=== PATIENT | female | born 1970 | race Caucasian/White ===

== ENCOUNTER 2016-04-30 18:55 | Emergency (ER) | payer OTHER ==
[2016-04-30 19:17] VITALS: BP 124/81; PULSE 98; TEMP 99.1; BMI 45.1
--- NOTE | 2016-04-30 20:40 | PDOC ---
History of Present Illness - General Chief Complaint: Back Pain Stated Complaint: BACK PAIN Time Seen by Provider: 04/30/16 19:48 History Source: Patient Exam Limitations: No Limitations - History of Present Illness Initial Comments: 04/30/16 20:39 CHIEF COMPLAINT: Back pain HISTORY OF PRESENT ILLNESS: This is a 46-year-old female with a history of chronic back pain and unspecified autoimmune disorder currently being worked up at [facility]. 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 She is a one pack per day smoker. She presents complaining of sudden onset of left upper back pain. The pain started while she was straining to have a bowel movement, however she states it is unlike her typical back pain. She reports that she is unable to take a deep breath because she feels a "band around her chest" and that she has pain in the left upper back when she tries to breathe deeply. She does not have chest pain at rest. She has not had any cough/hemoptysis. She has some mild dyspnea on exertion. Vital signs on arrival are notable for pulse of 98. REVIEW OF SYSTEMS: GENERAL/CONSTITUTIONAL: No fever or chills. No weakness. No weight change. HEAD, EYES, EARS, NOSE AND THROAT: No change in vision. No ear pain or discharge. No sore throat. CARDIOVASCULAR: Chest tightness with deep breathing. Mild LAWTON. RESPIRATORY: No cough, wheezing, or shortness of breath at rest. GASTROINTESTINAL: No nausea, vomiting, diarrhea or constipation. GENITOURINARY: No dysuria, frequency, or change in urination. MUSCULOSKELETAL: Left upper back pain, worse with deep breathing. SKIN: No rash or easy bruising. NEUROLOGIC: No headache, vertigo, loss of consciousness, or loss of sensation. PSYCHIATRIC: History of depression. ENDOCRINE: No increased thirst. No abnormal weight change. HEMATOLOGIC/LYMPHATIC: History of hypercoaguability on no AC or anti-platelet agents. ALLERGIC/IMMUNOLOGIC: Sulfa allergy. PHYSICAL EXAM: GENERAL: The patient is awake, alert, and fully oriented, in no acute distress. HEAD: Normal with no signs of trauma. ENT: Pupils equal, round and reactive to light, extraocular movements intact, sclera anicteric, conjunctiva clear. Neck supple. LUNGS: Clear to auscultation bilaterally. Splinting/unable to breathe deeply because of pain. CV: RRR, S1/S2, no MRG. Cap refill < 2 sec. ABDOMEN: Soft, non-distended, non-tender. EXTREMITIES: Left calf pain/positive Homans'. NEUROLOGICAL: Normal speech, normal gait. CN II-XII grossly intact. PSYCH: Normal mood, normal affect. SKIN: Warm, dry, normal turgor, no rashes or lesions noted. Past History - Past Medical History Allergies/Adverse Reactions: Allergies Allergy/AdvReac Type Severity Reaction Status Date / Time Sulfa (Sulfonamide Allergy Severe Difficulty Verified 04/30/16 19:12 Antibiotics) Breathing sulfite Allergy Verified 04/30/16 19:13 sulfates Allergy hives, Uncoded 04/30/16 19:12 swelling Home Medications: Ambulatory Orders Escitalopram Oxalate [Lexapro -] 10 mg PO DAILY 10/04/13 Methadone [Dolophine -] 10 mg PO BID 10/04/13 Lansoprazole [Prevacid] 30 mg PO DAILY 01/28/15 Cephalexin Monohydrate [Keflex -] 1,000 mg PO BID #14 capsule 01/29/15 Anemia: Yes Cardiac Disorders: Yes COPD: Yes (Emphysema) Psychiatric Problems: Yes (depression) - Surgical History Orthopedic Surgery: Yes (laminectomy x 2, microdiscectomy) - Immunization History Immunization Up to Date: Yes - Psycho/Social/Smoking Cessation Hx Anxiety: No Suicidal Ideation: No Smoking Status: Yes Smoking History: Current every day smoker Have you smoked in the past 12 months: Yes Number of Cigarettes Smoked Daily: 20 Information on smoking cessation initiated: Yes 'Breaking Loose' booklet given: 04/30/16 Hx Alcohol Use: No Drug/Substance Use Hx: No Substance Use Type: None Hx Substance Use Treatment: No *Physical Exam - Vital Signs Last Vital Signs Temp Pulse Resp BP Pulse Ox 99.1 F 98 H 18 124/81 99 04/30/16 19:13 04/30/16 19:13 04/30/16 19:13 04/30/16 19:13 04/30/16 19:13 ED Treatment Course - LABORATORY CBC & Chemistry Diagram: 04/30/16 20:30 04/30/16 20:30 Medical Decision Making - Medical Decision Making 04/30/16 20:46 A/P: 46 year old female with chest tightness/left upper back pain, possible history of hypercoaguability with 12 miscarriages, current smoker. 1. EKG 2. Labs including d-dimer 3. LE u/s to r/o DVT 4. Declines analgesia 04/30/16 22:20 D-dimer negative No DVT on u/s *DC/Admit/Observation/Transfer Diagnosis at time of Disposition: Upper back pain on left side - Discharge Dispostion Disposition: HOME Condition at time of disposition: Stable Admit: No - Referrals Referrals: Yecenia Salazar MD [Primary Care Provider] - Call tomorrow - Patient Instructions Printed Discharge Instructions: Thoracic Back Pain Additional Instructions: You were seen today for upper back pain and pleuritic chest pain. Your lab test to screen for blood clots in the lungs is normal. Your ultrasound to test for blood clots in the leg is also normal. Continue your pain medication regimen. Follow up with Dr. Salazar this week. Return here for any new or worsening symptoms.
[2016-04-30 20:56] LABS: BASOPHIL 1.6 % (0-2.0); EOSINOPHIL 1.4 % (0-4.5); MCH 27.7 pg (25.7-33.7); MCHC 32.5 g/dl (32.0-36.0); MEAN CELL VOLUME 85.2 fl (80-96); MEAN PLT VOLUME 7.9 fl (7.5-11.1); NEUTROPHILS 50.8 % (42.8-82.8); PLATELET COUNT 271 K/MM3 (134-434); RDW 13.6 % (11.6-15.6)
[2016-04-30 21:20] LABS: CALCIUM 8.5 mg/dL (8.5-10.1); CREATININE 0.9 mg/dL (0.55-1.02)
[2016-04-30 21:58] LABS: INR 1.08 (0.82-1.09)
[2016-04-30 22:01] LABS: D-DIMER < 200 ng/ml (<200-235)
--- NOTE | 2016-05-01 16:34 | EKG ---
Test Reason : Blood Pressure : / mmHG Vent. Rate : 080 BPM Atrial Rate : 080 BPM P-R Int : 132 ms QRS Dur : 074 ms QT Int : 390 ms P-R-T Axes : 026 030 037 degrees QTc Int : 449 ms NORMAL SINUS RHYTHM POSSIBLE ANTERIOR INFARCT , AGE UNDETERMINED ABNORMAL ECG WHEN COMPARED WITH ECG OF 08-SEP-2014 17:49, NO SIGNIFICANT CHANGE WAS FOUND Confirmed by DANE MÉNDEZ MD ([id number]) on 05/01/2016 4:34:23 PM Referred By: ANGIE Confirmed By:DANE MÉNDEZ MD
== END 2016-04-30 22:24 | disposition home or self-care (01) ==
LOC: JERFT 18:55
DX: M54.6 Pain in thoracic spine (principal); M79.662 Pain in left lower leg; D68.69 Other thrombophilia; J43.8 Other emphysema; F17.210 Nicotine dependence, cigarettes, uncomplicated; F32.9 Major depressive disorder, single episode, unspecified
CPT/HCPCS: 36415; 80048; 84703; 85025; 85379; 85610; 93005; 93010; 93971-TC; 99281-25

== ENCOUNTER 2016-08-05 07:14 | Day surgery (SDC) | payer OTHER ==
[2016-08-04 12:49] VITALS: BMI 30.7
[2016-08-05] MEDS ORDERED: MIDAZOLAM HCL 2 MG/2 ML SINGLE DOSE VIAL ONE ×2 (09:21)
[2016-08-05] MEDS ORDERED: TRIAMCINOLONE ACET 40MG/1ML VIAL ONE (09:25)
[2016-08-05] MEDS ORDERED: KETAMINE HCL 200 MG/20 ML VIAL ONE (09:35)
[2016-08-05 10:05] VITALS: TEMP 98.2
[2016-08-05] MEDS ORDERED: oxyCODONE HCL 5 MG TABLET PO ONE (10:12)
[2016-08-05 10:18] VITALS: BP 104/65; PULSE 80
--- NOTE | 2016-08-05 13:29 | OP ---
DATE OF OPERATION: 08/05/2016 PREOPERATIVE DIAGNOSIS: Low back pain, lumbar fusion, right sacroiliac joint dysfunction. POSTOPERATIVE DIAGNOSIS: Low back pain, lumbar fusion, right sacroiliac joint dysfunction. PROCEDURE: Right sacroiliac joint steroid injection. ANESTHESIA: Local and MAC. ANESTHESIOLOGIST: OLIVER Campos PROCEDURE: I discussed with her in detail about the risks, benefits, and alternative treatments, not only limited to infection, fever, numbness, tingling, weakness, injury to blood vessels and muscles. The patient understood, agreed, and signed the written consent. The patient was placed in the prone position with the head, abdomen, and legs supported with pillows. The patient was given intravenous sedation. The lumbosacral area was prepped and draped with Betadine x3 and alcohol x3. Under fluoroscopy, the right sacroiliac joint was identified. At this level, 3 mL of 1% lidocaine was infiltrated into the subcutaneous tissue. A 3-1/2-inch 22-gauge spinal needle was used to approach the sacroiliac joint. Under intermittent fluoroscopy, 1 mL of Omnipaque 180 was injected to see the flow of dye into the sacroiliac joint. After negative aspiration, solution containing 40 mg of Kenalog mixed with 2 mL of 0.25% Marcaine preservative-free for total of 3 mL was injected at this level. The needle was withdrawn. Lidocaine 1% of 1 mL was infiltrated. The patient tolerated the procedure well. There were no immediate complications. Betadine was wiped off. A sterile bandage was placed. The patient was then transferred to the recovery room. The patient was told to apply ice. If any problems to call me or report to the emergency room. Discharge instructions were given. She was told to follow up with me. ADEN CRUZ M.D. [id number]
== END 2016-08-05 10:15 | disposition home or self-care (01) ==
LOC: FASU 07:14
PROVIDERS: ATTEND Physical Medicine & Rehabilitation
PROC: 3E0R3CZ (ICD-10-PCS; 2016-08-05)
PROC: 3E0R33Z Introduction of Anti-inflammatory into Spinal Canal, Percutaneous Approach (ICD-10-PCS; principal; 2016-08-05 09:31)
DX: M46.1 Sacroiliitis, not elsewhere classified (principal); M54.5 Low back pain
CPT/HCPCS: 72100-TC; 84703

== ENCOUNTER 2016-11-18 05:15 | Day surgery (SDC) | payer OTHER ==
[2016-11-17 16:40] VITALS: BMI 32.3
[~2016-11-18 05:15] MED LIST: BUPIVACAINE HCL/PF 0.5% (5MG/ML) 10 ML VIAL IJ ONE
--- NOTE | 2016-11-18 07:20 | HP ---
Admitting History and Physical - Primary Care Physician PCP: Yecenia Salazar - Admission Chief Complaint: Numbness & tingling from shoulders to hands (bilateral) L>R History of Present Illness: 46 yo female with significant pmhx or chronic back pain. Multiple surgeries which include C3-C6 bilateral laminectomy, L4-L5 unilateral laminectomy and mircodiscetomy, L4-L5 fusion and spinal cord stimulator x 2. Patient here today for elective removal of cervical and thoracolumbar cord stimulators and repair of pseudomenincocele. She states she normally ambulates unassisted but as pain progresses throughout the day she needs to use her wheelchair. She is managed by Dr. Jose Perera (Pain Management) who has her on methadone 5mg BID. Denies any recent illness. Denies n/v/f/c, CP, SOB. History Source: Patient Limitations to Obtaining History: No Limitations - Past Medical History LINKING MACHINE OPERATOR: No: Alzheimer's, CVA, Dementia, Migraine, Multiple Sclerosis, Peripheral Neuropathy, Parkinson's, Seizure, Syncope, TIA, Vertigo, Other Cardiovascular: No: Murmur Pulmonary: Yes: Bronchitis, Other (Allergies) Gastrointestinal: Yes: Constipation, GERD, Hemorrhoids Renal/: Yes: UTI ...LMP: 10/14/16 ...: No Psych: Yes: Depression Musculoskeletal: Yes: Chronic low back pain, Other (Spinal stenosis, spondylolithesis) ENT: Yes: Allergic Rhinitis - Past Surgical History Past Surgical History: Yes: Arthrosocopy (Left knee x3), , Laminectomy (L4-L5 bilateral laminectomy and mircodiscectomy) Additional Past Surgical History: L4-L5 fusion Cervical and thoracolumbar spinal cord stimulators 2007 - Advance Directives Advance Directives: Yes: Living Will - Smoking History Smoking history: Current every day smoker Have you smoked in the past 12 months: Yes Aproximately how many cigarettes per day: 20 - Alcohol/Substance Use Hx Alcohol Use: No History of Substance Use: reports: None - Social History Usual Living Arrangement: Yes: Alone ADL: Independent History of Recent Travel: No Home Medications - Allergies Allergies/Adverse Reactions: Allergies Allergy/AdvReac Type Severity Reaction Status Date / Time adhesive tape Allergy Intermediate Rash Verified 11/18/16 06:38 sulfite Allergy Hives/ANAPH Verified 11/18/16 06:38 YLAXIS hydromorphone HCl AdvReac Severe Verified 11/18/16 06:38 [From Dilaudid] morphine AdvReac Severe Verified 11/18/16 06:38 Sulfa (Sulfonamide AdvReac Severe Difficulty Verified 11/18/16 06:38 Antibiotics) Breathing sulfates Allergy hives, Uncoded 11/18/16 06:38 swelling - Home Medications Home Medications: Ambulatory Orders Escitalopram Oxalate [Lexapro -] 20 mg PO DAILY 10/04/13 Methadone [Dolophine -] 5 mg PO BID 10/04/13 Adalimumab [Humira] 40 mg SQ ASDIR 08/04/16 Aspirin [Ecotrin] 81 mg PO DAILY 08/04/16 Montelukast Na [Singulair -] 10 mg PO DAILY 08/04/16 Ranitidine [Zantac -] 150 mg PO DAILY 08/04/16 Review of Systems - Review of Systems Constitutional: reports: No Symptoms Eyes: reports: No Symptoms HENT: reports: No Symptoms Neck: reports: No Symptoms Cardiovascular: reports: No Symptoms Respiratory: reports: No Symptoms Gastrointestinal: reports: No Symptoms Genitourinary: reports: No Symptoms Breasts: reports: No Symptoms Reported Musculoskeletal: reports: Back Pain (Chronic), Other (bilateral upper extremitiy numbness/tingling L>R) Integumentary: reports: No Symptoms Neurological: reports: No Symptoms Hematology/Lymphatic: reports: No Symptoms Psychiatric: reports: No Symptoms Physical Examination Vital Signs: Vital Signs Temperature 97.8 F 11/18/16 06:31 Pulse Rate 90 11/18/16 06:31 Respiratory Rate 18 11/18/16 06:31 Blood Pressure 108/77 11/18/16 06:31 O2 Sat by Pulse Oximetry (%) 98 11/18/16 06:32 Constitutional: Yes: Well Nourished, No Distress, Calm Eyes: Yes: WNL, Conjunctiva Clear, EOM Intact HENT: Yes: WNL, Atraumatic, Normocephalic Neck: Yes: WNL, Supple, Trachea Midline Cardiovascular: Yes: WNL, Regular Rate and Rhythm Respiratory: Yes: WNL, Regular, CTA Bilaterally Gastrointestinal: Yes: WNL, Normal Bowel Sounds, Soft, Abdomen, Obese ...Rectal Exam: Yes: Deferred Renal/: Yes: WNL Breast(s): Yes: WNL Musculoskeletal: Yes: Back Pain Extremities: Yes: WNL Edema: No Peripheral Pulses WNL: Yes Peripheral Pulses: Left Radial: 2+, Right Radial: 2+ Integumentary: Yes: WNL Neurological: Yes: WNL, Alert, Oriented ...Motor Strength: WNL Psychiatric: Yes: WNL, Alert, Oriented Problem List - Problems (1) Chronic pain Assessment/Plan: Pre-op for removal of spinal cord stim x 2 and repair of pseudomeningocele. NPO / IVF GI / DVT ppx Code(s): G89.29 - OTHER CHRONIC PAIN
[2016-11-18] MEDS ORDERED: LIDOCAINE 1%/EPI 1:100000 (50 ML MULTI DOSE VIAL) ONE ×2 (07:25→08:52)
[2016-11-18] MEDS ORDERED: BUPIVACAINE HCL/PF 0.5% (5MG/ML) 10 ML VIAL ONE (07:25)
[2016-11-18] MEDS ORDERED: MIDAZOLAM HCL 2 MG/2 ML SINGLE DOSE VIAL ONE ×2 (07:47→10:34)
[2016-11-18] MEDS ORDERED: GLYCOPYRROLATE 0.2 MG/1 ML VIAL ONE ×2 (07:48→10:22)
[2016-11-18] MEDS ORDERED: PROPOFOL 20 ML ONE ×2 (08:08→08:09)
[2016-11-18] MEDS ORDERED: ROCURONIUM BROMIDE 50 MG/5 ML VIAL ONE (08:09)
[2016-11-18] MEDS ORDERED: LIDOCAINE HCL/PF 2% SDV 5ML VIAL ONE (08:09)
[2016-11-18] MEDS ORDERED: DEXAMETHASONE SOD PHOSPHATE 4 MG/1 ML VIAL ONE ×2 (08:15→08:50)
[2016-11-18] MEDS ORDERED: ceFAZolin SODIUM 1 GM VIAL ONE (08:22)
[2016-11-18] MEDS ORDERED: SODIUM CHLORIDE 0.9% P/F 10 ML VIAL IJ ONE (08:22)
[2016-11-18] MEDS ORDERED: ceFAZolin SODIUM 1 GM VIAL IVPB ONE (08:30)
[2016-11-18] MEDS ORDERED: ACETAMINOPHEN INJECTION 100 ML IVPB ONE (08:48)
[2016-11-18] MEDS ORDERED: DESFLURANE GAS 240 ML BOTTLE IH ONE (08:57)
[2016-11-18] MEDS ORDERED: LIDOCAINE 1%/EPI 1:100000 (20 ML MULTI DOSE VIAL) INF ONE (09:02)
[2016-11-18] MEDS ORDERED: NEOSTIGMINE METHYLSULFATE 0.5 MG/ML - 10 ML MDV ONE (10:23)
[2016-11-18] MEDS ORDERED: BUPIVACAINE HCL/PF 0.5% (5MG/ML) 10 ML VIAL IJ ONE (10:45)
[2016-11-18] MEDS ORDERED: BUPIVACAINE HCL/PF 0.25% (2.5MG/ML) 10 ML VIAL ONE (10:46)
[2016-11-18] MEDS ORDERED: BUPIVACAINE HCL/PF 0.25% (2.5MG/ML) 10 ML VIAL IJ ONE (10:50)
[2016-11-18] MEDS ORDERED: KETOROLAC TROMETHAMINE 30 MG/1 ML VIAL ONE (11:15)
[2016-11-18] MEDS ORDERED: PROMETHAZINE HCL 25 MG/1 ML VIAL IVPUSH PRN (11:21)
[2016-11-18] MEDS ORDERED: ONDANSETRON 4 MG/2 ML VIAL IVPUSH PRN (11:21)
[2016-11-18] MEDS ORDERED: LACTATED RINGERS SOLUTION 1,000 ML IV SCH ×2 (11:30→12:15)
--- NOTE | 2016-11-18 12:11 | OP ---
Operative Note - Note: Operative Date: 11/18/16 Pre-Operative Diagnosis: Cervical and lumbar spondylosis with pseudomenigocele Operation: Removal of cervical and thoracolumbar spinal cord stimulators (fully intact), repair pseudomeningocele Post-Operative Diagnosis: Same as Pre-op Surgeon: Reed Hood Glass Cutting Machine Operator: Otto Amezcua Anesthesia: General Estimated Blood Loss (mls): 50 Drains, Volume Out (mls): 100 (Ferguson) Fluid Volume Replaced (mls): 700 Operative Report Dictated: Yes
[2016-11-18] MEDS ORDERED: ONDANSETRON 4 MG/2 ML VIAL IVPB PRN (12:12)
[2016-11-18] MEDS ORDERED: oxyCODONE HCL 5 MG TABLET PO PRN (12:12)
--- NOTE | 2016-11-18 12:12 | SURG ---
Surgery Core Stacker Note Core Stacker: Otto Amezcua PA-C Date of Service: 11/18/16 Diagnosis: Cervical and lumbar spondylosis with pseudomenigocele Procedure: Removal of cervical and thoracolumbar spinal cord stimulators and repair pseudomeningocele I was present for the entirety of the operative procedure. For further detail, please refer to operative report. Visit type - Case Type Case Type: Scheduled Admission - New patient This patient is new to me today: Yes Date on this admission: 11/18/16
[2016-11-18] MEDS ORDERED: PATIENT'S OWN MEDICATION (NON-FORMULARY) (Adalimumab [Humira] 40 MG) SQ SCH (12:15)
[2016-11-18] MEDS: ACETAMINOPHEN 1000 MG/100 ML VIAL (NON FORMULARY) IVPB SCH ×2 (14:38→17:59)
[2016-11-18 19:04] VITALS: BP 106/64; PULSE 72; TEMP 97.6
[2016-11-18] MEDS ORDERED: diphenhydrAMINE HCL 25 MG CAPSULE (FP) PO ONE (21:19)
[2016-11-18] MEDS ORDERED: METHADONE HCL 10 MG TABLET PO SCH (22:00)
--- NOTE | 2016-11-19 08:51 | PATH ---
Surgical Pathology Report Patient Name: CAROLYN LORA Med. Rec. #: [id number] /Age/Gender: 1970 (Age: 46) / F Account: [id number] Location: AMBULATORY SURG Taken: 11/18/2016 Received: 11/18/2016 Reported: 11/19/2016 Physicians: Reed Schuster M.D. Specimen(s) Received SPINAL CORD STIMULATORS Clinical History Chronic pain, pseudomeningocele Final Diagnosis WEBBING INSPECTOR, REMOVAL: TWO SPINAL CORD STIMULATORS (gross only). Electronically Signed Stevie Ramirez M.D. Gross Description Received dry labeled "spinal cord stimulators "are 2 metallic and plastic medical devices consistent with spinal cord stimulators. Each of these measures 5.5 x 5.3 x 0.8 cm. One is designated Medtronic restore ultra, and the other is designated Medtronic restore sensor. Also present are multiple portions of metallic wire partially covered in plastic. This is for gross identification only. YOSI/11/18/2016 [facility]/11/18/2016
[2016-11-19] MEDS ORDERED: ASPIRIN COATED 81 MG TABLET.EC PO SCH (10:00)
[2016-11-19] MEDS ORDERED: ESCITALOPRAM OXALATE 20 MG TABLET (FP) PO SCH (10:00)
[2016-11-19] MEDS ORDERED: RANITIDINE HCL 150 MG TABLET (FP) PO SCH (10:00)
[2016-11-19] MEDS ORDERED: MONTELUKAST NA 10 MG TABLET PO SCH (10:00)
== END 2016-11-18 22:30 | disposition home or self-care (01) ==
LOC: JASU-SURG 05:15 → JASUSAT 05:15 → J6S 14:20 → JASUSAT 22:30
PROVIDERS: ATTEND Neurological Surgery
PROC: 0JPT0MZ Removal of Stimulator Generator from Trunk Subcutaneous Tissue and Fascia, Open Approach (ICD-10-PCS; 2016-11-18)
PROC: 0JX Subcutaneous Tissue and Fascia, Transfer (ICD-10-PCS; 2016-11-18)
PROC: 00PU0MZ Removal of Neurostimulator Lead from Spinal Canal, Open Approach (ICD-10-PCS; principal; 2016-11-18 08:00)
DX: M47.892 Other spondylosis, cervical region (principal); M47.896 Other spondylosis, lumbar region; G89.29 Other chronic pain; Y83.8 Other surgical procedures as the cause of abnormal reaction of the patient, or of later complication, without mention of misadventure at the time of the procedure
CPT/HCPCS: 76000-TC; 88300-TC; 94760

== ENCOUNTER 2017-01-16 08:00 | Inpatient (IN) | payer OTHER ==
[2017-01-13 15:07] VITALS: BMI 33.0
[2017-01-20] MEDS ORDERED: PROPOFOL 20 ML ONE ×3 (07:41)
[2017-01-20] MEDS ORDERED: SUCCINYLCHOLINE CHLORIDE 200 MG/10 ML VIAL ONE (07:41)
[2017-01-20] MEDS ORDERED: MIDAZOLAM HCL 2 MG/2 ML SINGLE DOSE VIAL ONE ×3 (07:41)
[2017-01-20] MEDS ORDERED: ROCURONIUM BROMIDE 50 MG/5 ML VIAL ONE ×5 (07:41→12:13)
[2017-01-20] MEDS ORDERED: GENTAMICIN SO4 80 MG/2 ML VIAL ONE (08:10)
[2017-01-20] MEDS ORDERED: BACITRACIN 15 GM TUBE TOPICAL OINTMENT ONE (08:11)
[2017-01-20] MEDS ORDERED: BUPIVACAINE HCL/PF 0.5% (5MG/ML) 10 ML VIAL ONE (08:11)
[2017-01-20] MEDS ORDERED: LIDOCAINE 1%/EPI 1:100000 (50 ML MULTI DOSE VIAL) ONE (08:11)
--- NOTE | 2017-01-20 08:21 | HP ---
History & Physical Update - History History: No Change - Physical Physical: No Change - Assessment Assessment: No Change - Plan Plan: No Change
[2017-01-20] MEDS ORDERED: CEFAZOLIN 2 GM/D5W 50 ML IVPB ONE (08:30)
[2017-01-20] MEDS ORDERED: ceFAZolin SODIUM 1 GM VIAL IVPB ONE (09:00)
[2017-01-20] MEDS ORDERED: ONDANSETRON 4 MG/2 ML VIAL IVPUSH PRN (10:30)
[2017-01-20] MEDS ORDERED: LACTATED RINGERS SOLUTION 1,000 ML IV SCH (10:30)
[2017-01-20] MEDS ORDERED: LIDOCAINE HCL 0.5% EPINEPHRINE 1:200,000 50 ML VIAL IJ ONE ×2 (10:46→12:45)
[2017-01-20] MEDS ORDERED: ceFAZolin SODIUM 1 GM VIAL ONE ×3 (10:51→16:51)
[2017-01-20] MEDS ORDERED: DEXAMETHASONE SOD PHOSPHATE 4 MG/1 ML VIAL ONE ×2 (10:51→13:20)
[2017-01-20] MEDS ORDERED: SODIUM CHLORIDE 0.9% P/F 10 ML VIAL IJ ONE (10:51)
[2017-01-20] MEDS ORDERED: LIDOCAINE HCL/PF 2% SDV 5ML VIAL ONE (10:51)
[2017-01-20] MEDS ORDERED: DESFLURANE GAS 240 ML BOTTLE IH ONE (10:59)
--- NOTE | 2017-01-20 12:41 | EKG ---
Test Reason : Blood Pressure : / mmHG Vent. Rate : 109 BPM Atrial Rate : 109 BPM P-R Int : 136 ms QRS Dur : 074 ms QT Int : 354 ms P-R-T Axes : 069 037 -15 degrees QTc Int : 476 ms SINUS TACHYCARDIA rSR' IN V1-V2 NONSPECIFIC T WAVE ABNORMALITY ABNORMAL ECG WHEN COMPARED WITH ECG OF 17-NOV-2016 16:15, NONSPECIFIC T WAVE ABNORMALITY NOW EVIDENT IN LATERAL LEADS REPEAT EKG IF CLINICALLY INDICATED Confirmed by TREVER ESCALONA MD ([id number]) on 01/20/2017 12:41:43 PM Referred By: LUISA ALTAMIRANO Confirmed By:TREVER ESCALONA MD
[2017-01-20] MEDS ORDERED: LIDOCAINE 1%/EPI 1:100000 (20 ML MULTI DOSE VIAL) INF ONE (12:46)
[2017-01-20] MEDS ORDERED: BACITRACIN 15 GM TUBE TOPICAL OINTMENT TP ONE (12:47)
[2017-01-20] MEDS ORDERED: THROMBIN (BOVINE) 5,000 UNIT VIAL TP ONE (12:47)
[2017-01-20] MEDS ORDERED: BUPIVACAINE HCL/PF 0.5% (5MG/ML) 10 ML VIAL IJ ONE (12:55)
[2017-01-20] MEDS ORDERED: GLYCOPYRROLATE 0.2 MG/1 ML VIAL ONE (13:44)
[2017-01-20] MEDS ORDERED: NEOSTIGMINE METHYLSULFATE 0.5 MG/ML - 10 ML MDV ONE (13:44)
[2017-01-20] MEDS ORDERED: ACETAMINOPHEN INJECTION 100 ML IVPB ONE (14:18)
[2017-01-20] MEDS: ACETAMINOPHEN 1000 MG/100 ML VIAL (NON FORMULARY) IVPB ONE ×2 (14:23→18:21)
[2017-01-20] MEDS ORDERED: fentaNYL 1000 MCG/50 ML *PCA* DISP.SYRIN PCA SCH (14:30)
[2017-01-20] MEDS ORDERED: diazePAM CARPU-JECT 10 MG/2 ML DISP.SYRIN IVPUSH PRN (15:23)
--- NOTE | 2017-01-20 15:26 | PN ---
Progress Note, Physician Chief Complaint: POST-OP TODAY IN ICU S/P CERVICAL LAMINECTOMY WITH CAGE INSERTION ASLEEP - Current Medication List Current Medications: Active Medications Buspirone HCl (Buspar -) 10 mg PO BID [facility] Chlorhexidine Gluconate (Hibiclens For Decolonization -) 1 applic TP HS [facility] Diazepam (Valium Injection -) 5 mg IVPUSH Q6H PRN PRN Reason: PAIN Escitalopram Oxalate (Lexapro -) 20 mg PO DAILY [facility] Fentanyl (Fentanyl Cotton Sampler -) 1,000 mcg AUTOMATIC EQUIPMENT TECHNICIAN AUTOMATIC EQUIPMENT TECHNICIAN FREDA PRN Reason: Protocol Stop: 01/23/17 14:29 Fentanyl (Sublimaze Injection -) 100 mcg IVPUSH [id number] PRN PRN Reason: PAIN Stop: 01/23/17 14:31 Heparin Sodium (Porcine) (Heparin -) 5,000 unit SQ TID [facility] Lactated Ringer's (Lactated Ringers Solution) 1,000 mls @ 125 mls/hr IV ASDIR [facility] Cefazolin Sodium 1 gm/ (Dextrose) 50 mls @ 100 mls/hr IVPB Q8H-IV [facility] Stop: 01/21/17 02:29 Sodium Chloride (Normal Saline -) 1,000 mls @ 60 mls/hr IV ASDIR [facility] Montelukast Sodium (Singulair -) 10 mg PO DAILY [facility] Mupirocin (Bactroban Ointment (For Decolonization) -) 1 applic NS BID [facility] Stop: 01/25/17 21:59 Ondansetron HCl (Zofran Injection) 4 mg IVPUSH Q6H PRN PRN Reason: NAUSEA AND/OR VOMITING Stop: 01/20/17 16:31 Ranitidine HCl (Zantac -) 150 mg PO DAILY [facility] - Objective Vital Signs: Vital Signs Temperature 98.1 F 01/20/17 07:28 Pulse Rate 104 H 01/20/17 07:28 Respiratory Rate 20 01/20/17 07:28 Blood Pressure 116/76 01/20/17 07:28 O2 Sat by Pulse Oximetry (%) 95 01/20/17 07:27 Constitutional: No: Mild Distress Eyes: Yes: WNL HENT: Yes: WNL Neck: Yes: Other Cardiovascular: Yes: WNL Respiratory: Yes: WNL Gastrointestinal: Yes: WNL Genitourinary: Yes: Ferguson Present Musculoskeletal: Yes: Muscle Weakness Extremities: Yes: WNL Edema: No Peripheral Pulses WNL: Yes Integumentary: Yes: WNL Wound/Incision: Yes: Dressing Dry and Intact ...Motor Strength: LUE, LLE, RUE, RLE Psychiatric: Yes: Other Problem List - Problems (1) Chronic pain Code(s): G89.29 - OTHER CHRONIC PAIN (2) Nicotine dependence Code(s): F17.200 - NICOTINE DEPENDENCE, UNSPECIFIED, UNCOMPLICATED (3) Spinal stenosis Code(s): M48.00 - SPINAL STENOSIS, SITE UNSPECIFIED (4) Spondylolisthesis Code(s): M43.10 - SPONDYLOLISTHESIS, SITE UNSPECIFIED Assessment/Plan S/P CERVICAL SPINE LAMINECTOMY PAIN CONTROL WOUND CARE DVT PROPHYLAXIS PT EVAL [facility]
[2017-01-20] MEDS ORDERED: SODIUM CHLORIDE 1,000 ML IV SCH (15:30)
--- NOTE | 2017-01-20 15:31 | OP ---
Operative Note - Note: Operative Date: 01/20/17 Pre-Operative Diagnosis: cervical myelopathy Operation: cervical laminectomy/corpectomies with Cage insertion/anterior plate , C3-C7 posterior fusion Surgeon: Reed Hood Retail Coverage Merchandiser Lead: Reina Smart Anesthesiologist/PRIMER BOXER: Trixie Sotomayor Anesthesia: General Estimated Blood Loss (mls): 430 Drains, Volume Out (mls): 200 (hunter) Fluid Volume Replaced (mls): 4,000 Operative Report Dictated: Yes
--- NOTE | 2017-01-20 15:37 | SURG ---
Surgery Biomedical Manager Note Biomedical Manager: Reina Smart PA-C Date of Service: 01/20/17 Diagnosis: cervical myelopathy Procedure: cervical laminectomy/corpectomies with Cage insertion/anterior plate, C3-C7 posterior fusion I was present for the entirety of the operative procedure. For further detail, please refer to operative report. Visit type - Case Type Case Type: Scheduled Admission - Emergency Emergency Visit: No - New patient This patient is new to me today: Yes Date on this admission: 01/20/17 - Critical Care Critical Care patient: No
[2017-01-20] MEDS: diazePAM CARPU-JECT 10 MG/2 ML DISP.SYRIN IVPUSH ONE (16:02)
[2017-01-20 16:32] LABS: MCH 28.7 pg (25.7-33.7); MCHC 33.5 g/dl (32.0-36.0); MEAN CELL VOLUME 85.6 fl (80-96); MEAN PLT VOLUME 7.9 fl (7.5-11.1); PLATELET COUNT 244 K/MM3 (134-434); RDW 13.8 % (11.6-15.6); WHITE BLOOD COUNT 14.6 K/mm3 (4.0-10.0)
[2017-01-20 17:43] LABS: ANION GAP 6 (8-16); CALCIUM 8.1 mg/dL (8.5-10.1); CO2 26 mmol/L (21-32); CREATININE 0.8 mg/dL (0.55-1.02); GLUCOSE,RANDOM 134 mg/dL (74-106)
[2017-01-20] MEDS ORDERED: CEFAZOLIN 1 GM in DEXTROSE 5%-WATER - 50 ML IVPB SCH (20:00)
[2017-01-20 20:01] LABS: PLATELET ESTIMATE ADEQUATE (NORMAL); REACTIVE LYMPHOCYTES 1 % (0-80); TOTAL CELLS COUNTED 100
--- NOTE | 2017-01-20 20:57 | CONSULT ---
Consult Consult Specialty:: Pulmonary Critical care Reason for Consultation:: Post op monitoring - History of Present Illness Chief Complaint: s/p cervical laminectomy History of Present Illness: 46 you with h/o chronic back pain, depression, anxiety who is s/p cervical laminectomy/corpectomies with cage insertion, C3-C7 posterior fusion. Admitted to ICU for post op monitoring. Current Medications Acetaminophen (Ofirmev Injection -) 1,000 mg IVPB Q8H [facility] Stop: 01/21/17 14:16 Buspirone HCl (Buspar -) 10 mg PO BID [facility] Chlorhexidine Gluconate (Hibiclens For Decolonization -) 1 applic TP HS [facility] Diazepam (Valium Injection -) 5 mg IVPUSH Q6H PRN PRN Reason: PAIN Escitalopram Oxalate (Lexapro -) 20 mg PO DAILY [facility] Fentanyl (Fentanyl Creative Intern -) 1,000 mcg COLLECTION SYSTEMS CONSULTANT COLLECTION SYSTEMS CONSULTANT FREDA PRN Reason: Protocol Stop: 01/23/17 14:29 Last Admin: 01/20/17 15:30 Dose: 1,000 mcg Fentanyl (Sublimaze Injection -) 100 mcg IVPUSH [id number] PRN PRN Reason: PAIN Stop: 01/23/17 14:31 Last Admin: 01/20/17 14:26 Dose: 100 mcg Heparin Sodium (Porcine) (Heparin -) 5,000 unit SQ TID [facility] Sodium Chloride (Normal Saline -) 1,000 mls @ 60 mls/hr IV ASDIR [facility] Last Admin: 01/20/17 18:53 Dose: 60 mls/hr Cefazolin Sodium 1 gm/ (Dextrose) 50 mls @ 100 mls/hr IVPB Q8H [facility] Stop: 01/21/17 05:44 Montelukast Sodium (Singulair -) 10 mg PO DAILY [facility] Mupirocin (Bactroban Ointment (For Decolonization) -) 1 applic NS BID [facility] Stop: 01/25/17 21:59 Ondansetron HCl (Zofran Injection) 4 mg IVPUSH Q6H PRN PRN Reason: NAUSEA AND/OR VOMITING Ranitidine HCl (Zantac -) 150 mg PO DAILY [facility] - Past Medical History Pulmonary: Yes: Bronchitis, Other (Allergies) Gastrointestinal: Yes: Constipation, GERD, Hemorrhoids Renal/: Yes: UTI ...LMP: 10/14/16 Psych: Yes: Depression Musculoskeletal: Yes: Chronic low back pain, Other (Spinal stenosis, spondylolithesis) ENT: Yes: Allergic Rhinitis - Past Surgical History Past Surgical History: Yes: Arthrosocopy (Left knee x3), , Laminectomy (L4-L5 bilateral laminectomy and mircodiscectomy) - Alcohol/Substance Use Hx Alcohol Use: No History of Substance Use: reports: None - Smoking History Smoking history: Never smoked Have you smoked in the past 12 months: Yes Aproximately how many cigarettes per day: 20 - Social History ADL: Independent History of Recent Travel: No Home Medications - Allergies Allergies/Adverse Reactions: Allergies Allergy/AdvReac Type Severity Reaction Status Date / Time adhesive tape Allergy Intermediate Rash Verified 01/20/17 07:31 sulfite Allergy Hives/ANAPH Verified 01/20/17 07:31 YLAXIS hydromorphone HCl AdvReac Severe Verified 01/20/17 07:31 [From Dilaudid] morphine AdvReac Severe Verified 01/20/17 07:31 Sulfa (Sulfonamide AdvReac Severe Difficulty Verified 01/20/17 07:31 Antibiotics) Breathing sulfates Allergy hives, Uncoded 01/20/17 07:31 swelling - Home Medications Home Medications: Ambulatory Orders Escitalopram Oxalate [Lexapro -] 20 mg PO DAILY 10/04/13 Methadone [Dolophine -] 5 mg PO BID 10/04/13 Adalimumab [Humira] 40 mg SQ ASDIR 08/04/16 Aspirin [Ecotrin] 81 mg PO DAILY 08/04/16 Montelukast Na [Singulair -] 10 mg PO DAILY 08/04/16 Ranitidine [Zantac -] 150 mg PO DAILY 08/04/16 Buspirone HCl [Buspar -] 10 mg PO BID 01/13/17 Physical Exam Vital Signs: Vital Signs Temperature 98.2 F 01/20/17 20:00 Pulse Rate 110 H 01/20/17 20:00 Respiratory Rate 16 01/20/17 20:18 Blood Pressure 133/80 01/20/17 20:36 O2 Sat by Pulse Oximetry (%) 97 01/20/17 20:18 Eyes: Yes: WNL Neck: Yes: Other (Collar in place, 2 CHRISTINA drains draining serosangiunous fluid) Cardiovascular: Yes: Tachycardia, S1, S2 Respiratory: Yes: CTA Bilaterally Gastrointestinal: Yes: Normal Bowel Sounds, Soft, Abdomen, Obese. No: Tenderness Extremities: Yes: WNL Edema: No Neurological: Yes: Alert, Oriented ...Motor Strength: WNL Labs: CBC, BMP 01/20/17 16:00 01/20/17 16:00 Imaging - Results EKG: Image Reviewed Problem List - Problems (1) Chronic pain Code(s): G89.29 - OTHER CHRONIC PAIN (2) Spinal stenosis Code(s): M48.00 - SPINAL STENOSIS, SITE UNSPECIFIED (3) Spondylolisthesis Code(s): M43.10 - SPONDYLOLISTHESIS, SITE UNSPECIFIED Assessment/Plan ASSESSMENT: 46 you with h/o chronic back pain, depression, anxiety who is s/p cervical laminectomy/corpectomies with cage insertion, C3-C7 posterior fusion. Admitted to ICU for post op monitoring. PLAN: -surgery following -keep C-collar in place -monitor CHRISTINA output -pain management with fentanyl COLLECTION SYSTEMS CONSULTANT -valium prn for anxiety -cont buspar -cont lexapro -cont cefazolin -venodynes in place for DVT ppx NIESHA Guerrero critical care time: 35 min
[2017-01-20] MEDS: MUPIROCIN 2% TOPICAL OINTMENT FOR DECOLONIZATION NS SCH (21:32)
[2017-01-20] MEDS: HEPARIN NA (PORCINE) 5,000 UNITS/ML 1ML VIAL SQ SCH (21:32)
[2017-01-20] MEDS: ACETAMINOPHEN 1000 MG/100 ML VIAL (NON FORMULARY) IVPB SCH (21:32)
[2017-01-20] MEDS: CHLORHEXIDINE GLUCONATE 4% CLEANSER FOR DECOLONIZATION TP SCH (21:39)
[2017-01-20] MEDS: CEFAZOLIN 1 GM in DEXTROSE 5%-WATER - 50 ML IVPB SCH (22:01)
[2017-01-20] MEDS: busPIRone HCL 10 MG TABLET (FP) PO SCH (23:00)
[2017-01-21] MEDS: CEFAZOLIN 1 GM in DEXTROSE 5%-WATER - 50 ML IVPB SCH (05:10)
[2017-01-21] MEDS: HEPARIN NA (PORCINE) 5,000 UNITS/ML 1ML VIAL SQ SCH ×3 (05:18→21:21)
[2017-01-21] MEDS: ACETAMINOPHEN 1000 MG/100 ML VIAL (NON FORMULARY) IVPB SCH (05:19)
[2017-01-21 06:27] LABS: BASOPHIL 0.1 % (0-2.0); MEAN CELL VOLUME 85.3 fl (80-96); MEAN PLT VOLUME 8.1 fl (7.5-11.1); NEUTROPHILS 86.3 % (42.8-82.8); PLATELET COUNT 256 K/MM3 (134-434); RDW 13.5 % (11.6-15.6); WHITE BLOOD COUNT 14.1 K/mm3 (4.0-10.0)
[2017-01-21 06:54] LABS: ANION GAP 8 (8-16); CALCIUM 8.2 mg/dL (8.5-10.1); CO2 28 mmol/L (21-32); GLUCOSE,RANDOM 108 mg/dL (74-106)
[2017-01-21 06:56] LABS: CREATININE 0.6 mg/dL (0.55-1.02)
--- NOTE | 2017-01-21 08:19 | PN ---
Physical Exam: SUBJECTIVE: Patient seen and examined in ICU. Neck pain poorly controlled, converted PUBLIC HEALTH ASSISTANT to PO per pt request. Denies fever, chills, chest pain and SOB. Marty d/c this AM. OBJECTIVE: Vital Signs Period Temp Pulse Resp BP Sys/Vela Pulse Ox Last 24 Hr 98.2 F-98.9 F 87-120 9-22 117-173/73-126 95-100 Intake & Output 01/18/17 01/19/17 01/20/17 01/21/17 23:59 23:59 23:59 23:59 Intake Total 4620 820 Output Total 2727 1250 Balance 1893 -430 general: uncomfortable, uncooperative neck: c-collar, 2xJP drain w/ serosanginous discharge heart: rrr, no murmur, gallop or rub lungs: CTAB, no wheezes, rales, or rhonchi abdomen: soft, ntnd extr: wwp, no LE edema Laboratory Results - last 24 hr 01/20/17 01/20/17 01/21/17 16:00 16:00 05:10 WBC 14.6 H D 14.1 H RBC 4.62 4.36 Hgb 13.2 D 12.6 Hct 39.6 D 37.2 MCV 85.6 85.3 MCH 28.7 29.0 MCHC 33.5 34.0 RDW 13.8 13.5 Plt Count 244 256 MPV 7.9 8.1 Total Counted 100 Neutrophils % No Result Required. 86.3 H D Neutrophils % (Manual) 92 H* Band Neuts % (Manual) 2 Lymphocytes % No Result Required. 7.8 L D Lymphocytes % (Manual) 4 L Monocytes % 5.8 Monocytes % (Manual) 1 L Eosinophils % 0.0 D Basophils % 0.1 Other Cell Type Platelet Estimate Adequate Sodium 138 Potassium 4.2 Chloride 106 Carbon Dioxide 26 Anion Gap 6 L BUN 11 D Creatinine 0.8 Random Glucose 134 H D Calcium 8.1 L Active Medications Buspirone HCl (Buspar -) 10 mg PO BID [facility] Last Admin: 01/20/17 23:00 Dose: 10 mg Chlorhexidine Gluconate (Hibiclens For Decolonization -) 1 applic TP HS [facility] Last Admin: 01/20/17 21:39 Dose: 1 applic Docusate Sodium (Colace -) 100 mg PO BID PRN PRN Reason: CONSTIPATION Escitalopram Oxalate (Lexapro -) 20 mg PO DAILY [facility] Heparin Sodium (Porcine) (Heparin -) 5,000 unit SQ TID [facility] Last Admin: 01/21/17 05:18 Dose: 5,000 unit Montelukast Sodium (Singulair -) 10 mg PO DAILY [facility] Mupirocin (Bactroban Ointment (For Decolonization) -) 1 applic NS BID [facility] Stop: 01/25/17 21:59 Last Admin: 01/20/17 21:32 Dose: 1 applic Ondansetron HCl (Zofran Injection) 4 mg IVPUSH Q6H PRN PRN Reason: NAUSEA AND/OR VOMITING Oxycodone HCl (Roxicodone -) 5 mg PO Q4H PRN PRN Reason: PAIN LEVEL 1-5 Oxycodone HCl (Roxicodone -) 10 mg PO Q4H PRN PRN Reason: PAIN LEVEL 6-10 Ranitidine HCl (Zantac -) 150 mg PO DAILY [facility] ASSESSMENT/PLAN: 46yo W with PMH of asthma and anxiety who is POD1 from cervical laminectomy/ corpectomies with Cage insertion/anterior plate, C3-C7 posterior fusion. #POD1 cervical laminectomy/fusion -neurosurgery following -keep C-collar in place -monitor CHRISTINA output -oxycodone 5-10mg PO PRN for pain #anxiety -valium prn for anxiety -cont buspar -cont lexapro #asthma -continue Montelukast 10mg PO qd #FEN -IVF - hold -lytes wnl -Regular diet #PPX -DVT - heparin tid, scd's -GI - not indicated #Dispo- transfer to [facility]/S FULL Code d/w Dr. Lito Moser MD PGY-1 Visit type - Emergency Visit Emergency Visit: No - New Patient This patient is new to me today: Yes Date on this admission: 01/21/17 - Critical Care Critical Care patient: Yes Total Critical Care Time (in minutes): 35 Critical Care Statement: The care of this patient involved high complexity decision making to prevent further life threatening deterioration of the patient 's condition and/or to evaluate & treat vital organ system(s) failure or risk of failure.
[2017-01-21] MEDS ORDERED: oxyCODONE HCL 5 MG TABLET PO PRN (08:37)
[2017-01-21] MEDS ORDERED: DOCUSATE SODIUM 100 MG CAPSULE (FP) PO PRN (08:38)
[2017-01-21] MEDS ORDERED: PT OWN MED DRAWER 7, Y5N ONE ×2 (09:01→21:07)
[2017-01-21] MEDS: busPIRone HCL 10 MG TABLET (FP) PO SCH ×2 (09:18→21:18)
[2017-01-21] MEDS: oxyCODONE HCL 5 MG TABLET PO PRN ×3 (09:52→18:57)
[2017-01-21] MEDS ORDERED: RANITIDINE HCL 150 MG TABLET (FP) PO SCH (10:00)
[2017-01-21] MEDS ORDERED: ESCITALOPRAM OXALATE 20 MG TABLET (FP) PO SCH (10:00)
[2017-01-21] MEDS ORDERED: MONTELUKAST NA 10 MG TABLET PO SCH (10:00)
--- NOTE | 2017-01-21 10:07 | PN ---
Progress Note (short form) - Note Progress Note: POD#1 pt states that the ASSEMBLER MOTOR VEHICLE isn't helping and wants to start oral medications. She has taken oxycodone in the past and was given methadone by her pain management doctors for pain control. No difficulty swallowing clears, no nausea or emesis. Vital Signs Period Temp Pulse Resp BP Sys/Vela Pulse Ox Last 24 Hr 98.2 F-98.9 F 87-120 9-22 117-173/73-126 95-100 CHRISTINA:posterior 250ml serosangrenous anterior 50ml serosangrenous uop:2500 GEN: A&0x3, NAD sitting upright with cervical collar in place CV:RRR Lungs CTA b/l Neck: anterior: dressing c/d/i no evidence of hematoma/ecchymosis posterior: dressing c/d/i LE: no calf tenderness or swelling noted b/l NEURO: boiler riveter strength equal b/l, [place] without difficulty. 5/5 dorsi/plantar flexion CBC, BMP 01/21/17 05:10 01/21/17 05:10 Laboratory Tests 01/20/17 07:09 Urine HCG, Qual Negative A/P: 46 yo female s/p cervical laminectomy/corpectomies with Cage insertion/ anterior plate, C3-C7 posterior fusion Advance diet to low residual and discontinue IVF OOB to chair this am with assistance/PT consult ordered Discontinue ASSEMBLER MOTOR VEHICLE/oral medications started hunter removed for TOV Pt must wear cervical collar at all times D/w Dr. Hood, pt may be transferred to the med/surg floor
[2017-01-21] MEDS ORDERED: LORazepam 1 MG TABLET PO ONE ×2 (10:08→17:00)
[2017-01-21] MEDS: MUPIROCIN 2% TOPICAL OINTMENT FOR DECOLONIZATION NS SCH ×2 (10:18→21:21)
--- NOTE | 2017-01-21 10:22 | PN ---
Progress Note, Physician Chief Complaint: asleep comfortable - Current Medication List Current Medications: Active Medications Buspirone HCl (Buspar -) 10 mg PO BID [facility] Last Admin: 01/21/17 09:18 Dose: 10 mg Chlorhexidine Gluconate (Hibiclens For Decolonization -) 1 applic TP HS [facility] Last Admin: 01/20/17 21:39 Dose: 1 applic Docusate Sodium (Colace -) 100 mg PO BID PRN PRN Reason: CONSTIPATION Escitalopram Oxalate (Lexapro -) 20 mg PO DAILY [facility] Last Admin: 01/21/17 09:19 Dose: 20 mg Heparin Sodium (Porcine) (Heparin -) 5,000 unit SQ TID [facility] Last Admin: 01/21/17 05:18 Dose: 5,000 unit Montelukast Sodium (Singulair -) 10 mg PO DAILY [facility] Last Admin: 01/21/17 09:19 Dose: 10 mg Mupirocin (Bactroban Ointment (For Decolonization) -) 1 applic NS BID [facility] Stop: 01/25/17 21:59 Last Admin: 01/21/17 10:18 Dose: 1 applic Ondansetron HCl (Zofran Injection) 4 mg IVPUSH Q6H PRN PRN Reason: NAUSEA AND/OR VOMITING Oxycodone HCl (Roxicodone -) 5 mg PO Q4H PRN PRN Reason: PAIN LEVEL 1-5 Oxycodone HCl (Roxicodone -) 10 mg PO Q4H PRN PRN Reason: PAIN LEVEL 6-10 Last Admin: 01/21/17 09:52 Dose: 10 mg Ranitidine HCl (Zantac -) 150 mg PO DAILY [facility] Last Admin: 01/21/17 09:19 Dose: 150 mg - Objective Vital Signs: Vital Signs Temperature 98.9 F 01/21/17 05:00 Pulse Rate 101 H 01/21/17 08:00 Respiratory Rate 18 01/21/17 08:00 Blood Pressure 119/77 01/21/17 08:00 O2 Sat by Pulse Oximetry (%) 97 01/20/17 20:18 Constitutional: Yes: Mild Distress Eyes: Yes: WNL HENT: Yes: WNL Neck: Yes: Other Cardiovascular: Yes: WNL Respiratory: Yes: WNL Gastrointestinal: Yes: WNL Genitourinary: Yes: Ferguson Present Musculoskeletal: Yes: Back Pain, Muscle Weakness Extremities: Yes: WNL Edema: No Peripheral Pulses WNL: Yes Integumentary: Yes: WNL Wound/Incision: Yes: Draining Neurological: Yes: Other Psychiatric: Yes: WNL Labs: CBC, BMP 01/21/17 05:10 01/21/17 05:10 Problem List - Problems (1) Chronic pain Code(s): G89.29 - OTHER CHRONIC PAIN (2) Nicotine dependence Code(s): F17.200 - NICOTINE DEPENDENCE, UNSPECIFIED, UNCOMPLICATED (3) Spinal stenosis Code(s): M48.00 - SPINAL STENOSIS, SITE UNSPECIFIED (4) Spondylolisthesis Code(s): M43.10 - SPONDYLOLISTHESIS, SITE UNSPECIFIED Assessment/Plan S/P CERVICAL SPINE LAMINECTOMY PAIN CONTROL WOUND CARE DVT PROPHYLAXIS PT EVAL [facility]
--- NOTE | 2017-01-21 11:53 | PN ---
Teaching Attending Note Name of Resident: Kim Moser ATTENDING PHYSICIAN STATEMENT I saw and evaluated the patient. I reviewed the resident's note and discussed the case with the resident. I agree with the resident's findings and plan as documented. SUBJECTIVE: Pt seen and examined in the ICU. 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 No shortness of breath or chest pain. No fevers or chills. OBJECTIVE: Last Vital Signs Temp Pulse Resp BP Pulse Ox 97.4 F L 109 H 25 H 137/80 97 01/21/17 10:00 01/21/17 10:00 01/21/17 10:00 01/21/17 10:00 01/20/17 20:18 Intake & Output 01/18/17 01/19/17 01/20/17 01/21/17 23:59 23:59 23:59 23:59 Intake Total 4620 820 Output Total 2727 1250 Balance 1893 -430 Gen: uncomfortable in pain Neck: in c-collar, +CHRISTINA drains with serosanguinous drainage Heart: tachycardic, regular Lung: decreased breath sounds at the bases Ext: no edema CBC, BMP 01/21/17 05:10 01/21/17 05:10 Active Medications Buspirone HCl (Buspar -) 10 mg PO BID [facility] Last Admin: 01/21/17 09:18 Dose: 10 mg Chlorhexidine Gluconate (Hibiclens For Decolonization -) 1 applic TP HS [facility] Last Admin: 01/20/17 21:39 Dose: 1 applic Docusate Sodium (Colace -) 100 mg PO BID PRN PRN Reason: CONSTIPATION Escitalopram Oxalate (Lexapro -) 20 mg PO DAILY [facility] Last Admin: 01/21/17 09:19 Dose: 20 mg Heparin Sodium (Porcine) (Heparin -) 5,000 unit SQ TID [facility] Last Admin: 01/21/17 05:18 Dose: 5,000 unit Montelukast Sodium (Singulair -) 10 mg PO DAILY [facility] Last Admin: 01/21/17 09:19 Dose: 10 mg Mupirocin (Bactroban Ointment (For Decolonization) -) 1 applic NS BID [facility] Stop: 01/25/17 21:59 Last Admin: 01/21/17 10:18 Dose: 1 applic Ondansetron HCl (Zofran Injection) 4 mg IVPUSH Q6H PRN PRN Reason: NAUSEA AND/OR VOMITING Oxycodone HCl (Roxicodone -) 5 mg PO Q4H PRN PRN Reason: PAIN LEVEL 1-5 Oxycodone HCl (Roxicodone -) 10 mg PO Q4H PRN PRN Reason: PAIN LEVEL 6-10 Last Admin: 01/21/17 09:52 Dose: 10 mg Ranitidine HCl (Zantac -) 150 mg PO DAILY [facility] Last Admin: 01/21/17 09:19 Dose: 150 mg ASSESSMENT AND PLAN: Chronic Back Pain s/p Cervical Laminectomy/Corpectomies with Cage insertion/C3-C7 posterior fusion Depression/Anxiety - pain control - neuro checks - monitor drain output - PT - DVT prophylaxis - can monitor on floor
--- NOTE | 2017-01-21 14:08 | PN ---
Progress Note (short form) - Note Progress Note: anesthesia POD#1 S/P Anterior Cervical cage/laminectomy Posterior Cervical fusion under GA VSS,no N/V. Dilaudid PRE KINDERGARTEN TEACHER was not helpful so discontinued. she is better on oral narcotics. Food is advanced. A/P No complication to anesthesia seen. Valerie Monroe MD.
[2017-01-21] MEDS ORDERED: PANTOPRAZOLE 40 MG TABLET (FP) PO ONE (18:32)
--- NOTE | 2017-01-21 18:51 | PN ---
Progress Note (short form) - Note Progress Note: PT D/w Dr. Hood and seen with Dr. Perera, discharge oral medication plan reviewed with Dr. Perera, myself and the patient. Will hold methadone upon discharge and given oxycontin 10 mg scheduled and oxycodone 5 mg as needed. Awaitng VNS/home health aide to be reestablished in the am and then will discharge to home after services obtained.
[2017-01-21] MEDS: ONDANSETRON 4 MG/2 ML VIAL IVPUSH PRN (20:17)
[2017-01-21] MEDS: oxyCODONE HCL 10 MG SUSTAINED ACTING TABLET PO SCH ×2 (21:17→21:22)
[2017-01-21] MEDS ORDERED: diazePAM 5 MG TABLET PO PRN (22:00)
[2017-01-21] MEDS ORDERED: oxyCODONE HCL 10 MG SUSTAINED ACTING TABLET PO SCH (22:00)
[2017-01-21] MEDS: CHLORHEXIDINE GLUCONATE 4% CLEANSER FOR DECOLONIZATION TP SCH (23:51)
[2017-01-22] MEDS: oxyCODONE HCL 5 MG TABLET PO PRN (00:20)
[2017-01-22] MEDS: ONDANSETRON 4 MG/2 ML VIAL IVPUSH PRN (03:00)
[2017-01-22 04:21] VITALS: PULSE 90
[2017-01-22] MEDS ORDERED: oxyCODONE HCL 5 MG TABLET PO PRN ×2 (05:13)
[2017-01-22] MEDS ORDERED: diazePAM CARPU-JECT 10 MG/2 ML DISP.SYRIN IVPUSH ONE (05:13)
[2017-01-22] MEDS ORDERED: DOCUSATE SODIUM 100 MG CAPSULE (FP) PO PRN (05:13)
[2017-01-22] MEDS ORDERED: ONDANSETRON 4 MG/2 ML VIAL IVPUSH PRN (05:13)
[2017-01-22] MEDS ORDERED: HEPARIN NA (PORCINE) 5,000 UNITS/ML 1ML VIAL SQ SCH (06:00)
[2017-01-22 06:19] LABS: BASOPHIL 0.7 % (0-2.0); EOSINOPHIL 0.5 % (0-4.5); MCH 29.3 pg (25.7-33.7); MCHC 34.6 g/dl (32.0-36.0); MEAN CELL VOLUME 84.6 fl (80-96); MEAN PLT VOLUME 8.2 fl (7.5-11.1); NEUTROPHILS 67.4 % (42.8-82.8); PLATELET COUNT 241 K/MM3 (134-434); RDW 13.5 % (11.6-15.6); WHITE BLOOD COUNT 10.9 K/mm3 (4.0-10.0)
[2017-01-22 07:22] LABS: ALBUMIN 3.2 g/dl (3.4-5.0); ANION GAP 7 (8-16); BILIRUBIN,TOTAL 0.4 mg/dL (0.2-1.0); CALCIUM 7.9 mg/dL (8.5-10.1); CO2 27 mmol/L (21-32); CREATININE 0.8 mg/dL (0.55-1.02); GLUCOSE,RANDOM 92 mg/dL (74-106); PHOSPHOROUS 2.1 mg/dL (2.5-4.9); SGOT/AST 18 U/L (15-37); SGPT/ALT 21 U/L (12-78)
[2017-01-22 07:23] LABS: ALK PHOS 78 U/L (45-117)
--- NOTE | 2017-01-22 08:36 | PN ---
Progress Note (short form) - Note Progress Note: Pt with some emesis x1 overnight. No longer nauseated this am. Ambulating without difficulty. Pain controlled with oral medications. Vital Signs Period Temp Pulse Resp BP Sys/Vela Pulse Ox Last 24 Hr 98 F-98.7 F 90-99 18-22 105-150/58-87 98-100 CHRISTINA-210 ml posterior-serosangrenous 50ml anterior-serosangrenous GEN: Pt sitting upright in bed with collar off. Neck: anterior drain removed and dressing changed. Incision c/d/i with dermabond. Mild ecchymosis, no swelling or masses. Drain removed without difficulty and seri-strip placed over opening. Posterior dressing changed. Rakel intact without ecchymosis/erythema or drainage. CHRISTINA intact-serosangrenous Replaced dressing with gauze/tegaderm. Left shoulder with small blister 1x1cm under tegaderm site where collar was resting. Covered the area with gauze/paper tape. Neuro: Moving upper ext/lower ext b/l without difficulty. A/P: 46 yo female s/p cervical laminectomy/corpectomies with Cage insertion/ anterior plate, C3-C7 posterior fusion, POD#2 Anterior drain removed, will continue posterior drain. The patient was encourage/advised to stay but she is insistence on discharge today. A discharge plan was completed for the patient with appropriate services. She is clinically doing well, ambulating with PT and on her own. I spoke with the PT service and she has no need for home PT. I also spoke with the VNS/social media senior associate to coordinate her discharge. She has a home health aide with services reestablished, they will also monitor her CHRISTINA oupt/wound healing.She was advised to wear her cervical collar at all times. In addition, her home pain management was clarified with Dr. Perera prior to discharge and she was advised to follow-up with him in 2 weeks. Case D/w Dr. Hood
[2017-01-22 09:40] VITALS: BP 144/87; TEMP 98.6
[2017-01-22] MEDS ORDERED: MONTELUKAST NA 10 MG TABLET PO SCH (10:00)
[2017-01-22] MEDS ORDERED: RANITIDINE HCL 150 MG TABLET (FP) PO SCH (10:00)
[2017-01-22] MEDS ORDERED: MUPIROCIN 2% TOPICAL OINTMENT FOR DECOLONIZATION NS SCH (10:00)
[2017-01-22] MEDS ORDERED: busPIRone HCL 10 MG TABLET (FP) PO SCH (10:00)
[2017-01-22] MEDS ORDERED: ESCITALOPRAM OXALATE 20 MG TABLET (FP) PO SCH (10:00)
[2017-01-22] MEDS ORDERED: CHLORHEXIDINE GLUCONATE 4% CLEANSER FOR DECOLONIZATION TP SCH (22:00)
== END 2017-01-22 09:48 | disposition home health service (06) | DRG 455 ==
LOC: EDSTATUS 08:00 → JSAMEDAYSX 01-20 06:44 → JICU 01-20 17:17 → J2W 01-21 19:03
PROVIDERS: ADMIT Neurological Surgery; ATTEND Neurological Surgery
PROC: 0RG2071 Fusion of 2 or more Cervical Vertebral Joints with Autologous Tissue Substitute, Posterior Approach, Posterior Column, Open Approach (ICD-10-PCS; 2017-01-20)
PROC: 0RG20A0 Fusion of 2 or more Cervical Vertebral Joints with Interbody Fusion Device, Anterior Approach, Anterior Column, Open Approach (ICD-10-PCS; 2017-01-20)
PROC: 0RG20A1 (ICD-10-PCS; 2017-01-20)
PROC: 0RG2070 Fusion of 2 or more Cervical Vertebral Joints with Autologous Tissue Substitute, Anterior Approach, Anterior Column, Open Approach (ICD-10-PCS; 2017-01-20)
PROC: 00QT0ZZ Repair Spinal Meninges, Open Approach (ICD-10-PCS; 2017-01-20)
PROC: 00NW0ZZ Release Cervical Spinal Cord, Open Approach (ICD-10-PCS; principal; 2017-01-20 08:00)
DX: M47.12 Other spondylosis with myelopathy, cervical region (principal); M48.02 Spinal stenosis, cervical region; M43.12 Spondylolisthesis, cervical region; F41.8 Other specified anxiety disorders; J40 Bronchitis, not specified as acute or chronic; K21.9 Gastro-esophageal reflux disease without esophagitis; K64.8 Other hemorrhoids; K59.09 Other constipation; J30.89 Other allergic rhinitis; M54.5 Low back pain; G89.29 Other chronic pain; F17.200 Nicotine dependence, unspecified, uncomplicated; R00.0 Tachycardia, unspecified; M25.78 Osteophyte, vertebrae; G96.19 Other disorders of meninges, not elsewhere classified; M40.12 Other secondary kyphosis, cervical region; E66.8 Other obesity; Z68.33 Body mass index [BMI] 33.0-33.9, adult
CPT/HCPCS: 36415; 71010-TC; 72125-TC; 76000-TC; 80048; 80053; 83735; 84100; 84703; 85025; 86850; 86900; 86901; 93005; 93010; 94760; 97116-GP; 97161-GP; J1644

== ENCOUNTER 2017-04-29 10:13 | Emergency (ER) | payer OTHER ==
[2017-04-29 10:50] VITALS: BMI 32.3
--- NOTE | 2017-04-29 11:08 | PDOC ---
History of Present Illness - General Stated Complaint: WOUND CHECK Time Seen by Provider: 04/29/17 10:24 History Source: Patient Exam Limitations: No Limitations - History of Present Illness Initial Comments: 04/29/17 10:48 The patient is a 47F with a PMH of chronic back and neck pain (s/p c-spine fusion with Dr. Lopez in Dec 2016) and IBS who presents to the ER with concern that her scar has not healed and is bruising. The patient states that the inferior centimeter of her scar never healed. She is complaining of 2 days of discoloration (edges of the wound are turning black/blue). She denies any other acute complaints. She has no fever, chills, nausea, vomiting, SOB. She states she has anxiety and the discoloration has caused her to have a panic attack. Past History - Past Medical History Allergies/Adverse Reactions: Allergies Allergy/AdvReac Type Severity Reaction Status Date / Time adhesive tape Allergy Intermediate Rash Verified 01/20/17 07:31 sulfite Allergy Hives/ANAPH Verified 01/20/17 07:31 YLAXIS hydromorphone HCl AdvReac Severe Verified 01/20/17 07:31 [From Dilaudid] morphine AdvReac Severe Verified 01/20/17 07:31 Sulfa (Sulfonamide AdvReac Severe Difficulty Verified 01/20/17 07:31 Antibiotics) Breathing sulfates Allergy hives, Uncoded 01/20/17 07:31 swelling Home Medications: Ambulatory Orders Escitalopram Oxalate [Lexapro -] 20 mg PO DAILY 10/04/13 Adalimumab [Humira] 40 mg SQ [facility] 08/04/16 Montelukast Na [Singulair -] 10 mg PO DAILY 08/04/16 Ranitidine [Zantac -] 150 mg PO DAILY 08/04/16 Buspirone HCl [Buspar -] 10 mg PO BID 01/13/17 Anemia: No Asthma: No Cancer: No Cardiac Disorders: Yes (TACHICARDIA/WORKUP NEG) CVA: No COPD: Yes (CHRONIC BRONCHITIS) CHF: No Dementia: No Diabetes: No GI Disorders: Yes (GERD/IBS) Disorders: No HTN: No (LOW BP) Hypercholesterolemia: No Liver Disease: No Psychiatric Problems: (anxiety??) Seizures: No Thyroid Disease: No - Surgical History Abdominal Surgery: No Appendectomy: No Cardiac Surgery: No Cholecystectomy: No Lung Surgery: No Neurologic Surgery: (BACK SURGERIES) Orthopedic Surgery: Yes (laminectomy x 2, microdiscectomy/LUMBAR FUSION/LEFT KNEE ARTHROSCOPIES X 2/) - Immunization History Immunization Up to Date: Yes - Suicide/Smoking/Psychosocial Hx Smoking Status: Yes Smoking History: Never smoked Have you smoked in the past 12 months: Yes Number of Cigarettes Smoked Daily: 20 'Breaking Loose' booklet given: 11/17/16 Hx Alcohol Use: No Drug/Substance Use Hx: No Substance Use Type: None Hx Substance Use Treatment: No Review of Systems - Review of Systems Able to Perform ROS?: Yes Comments:: 04/29/17 11:11 GENERAL/CONSTITUTIONAL: No fever or chills. No weakness. HEAD, EYES, EARS, NOSE AND THROAT: No change in vision. No ear pain or discharge. No sore throat. GASTROINTESTINAL: No nausea, vomiting, diarrhea, constipation, or abdominal pain. GENITOURINARY: No dysuria, frequency, hematuria, or change in urination. CARDIOVASCULAR: No chest pain, palpitations, or lightheadedness. RESPIRATORY: No cough, wheezing, shortness of breath, or hemoptysis. MUSCULOSKELETAL: No joint or muscle swelling or pain. No neck or back pain. SKIN: Positive for non-healing wound since December. No rash or lesions. NEUROLOGIC: No headache, numbness, tingling, weakness, loss of consciousness, or change in strength/sensation. ENDOCRINE: No increased thirst. No abnormal weight change. HEMATOLOGIC/LYMPHATIC: No anemia, easy bleeding, or history of blood clots. ALLERGIC/IMMUNOLOGIC: No hives or skin allergy. Is the patient limited Citizen Of [place] proficient: No *Physical Exam - Physical Exam Comments: 04/29/17 11:12 GENERAL: Well developed, well nourished. Awake and alert. No acute distress. HEENT: Normocephalic, atraumatic. Hearing grossly normal. Moist mucous membranes. NECK: Supple. Full ROM. No JVD. CARDIOVASCULAR: Regular rate and rhythm. No murmurs, rubs, or gallops. PULMONARY: No evidence of respiratory distress. Lungs clear to auscultation bilaterally. No wheezing, rales or rhonchi. ABDOMINAL: Soft. Non-tender. Non-distended. No rebound or guarding. No organomegaly. Normoactive bowel sounds. MUSCULOSKELETAL: Normal range of motion at all joints. No bony deformities or tenderness. EXTREMITIES: No cyanosis. No clubbing. No edema. No calf tenderness. SKIN: 1cm nonhealing wound with bruising on edges, not erythematous or warm to touch. Warm and dry. Normal capillary refill. No rashes. No jaundice. NEUROLOGICAL: Alert, awake, appropriate. Cranial nerves 2-12 intact. Normal speech. Gait is normal without ataxia. PSYCHIATRIC: Cooperative. Good eye contact. Appropriate mood and affect. Medical Decision Making - Medical Decision Making 04/29/17 11:13 The patient is a 47F who presents with a nonhealing surgical scar wound. I will have the tech clean and cover the wound and have the patient f/u in clinic. The patient is refusing a rectal temperature but denies any fever, chills. I have a low suspicion for an infectious process. I have spoken with the wound clinic at [facility] and they will follow up with the patient. Dr. Reyes may come evaluate in ED. [phone]. 04/29/17 14:30 Pt is being seen by Dr. Reyes. Will f/u in clinic. Ready to go home. *DC/Admit/Observation/Transfer Diagnosis at time of Disposition: Chronic pain, Visit for wound check Wound disruption Qualifiers: Encounter type: initial encounter Qualified Code(s): T81.30XA - Disruption of wound, unspecified, initial encounter - Discharge Dispostion Disposition: HOME Condition at time of disposition: Stable Admit: No - Referrals Referrals: Yecenia Salazar MD [Primary Care Provider] - - Patient Instructions Printed Discharge Instructions: How to Care for a Surgical Wound Additional Instructions: Please return to the ER if symptoms persist, worsen, or new symptoms arise. Please follow up with your primary care physician in 2-3 days. Please call the Wound Clinic for a follow up appointment at [phone]. Please return to the ER if you have any signs or symptoms of chest pain, shortness of breath, uncontrollable fever, chills, nausea, vomiting, numbness, tingling, or weakness in any part of your body, changes in vision, or slurred speech. - Post Discharge Activity
--- NOTE | 2017-04-29 11:40 | PDOC ---
Attending Attestation - HPI HPI: 04/29/17 11:49 The patient is a 47 year old female, with a significant past medical history of chronic back pain, neck pain, and IBS, who presents to the emergency room for evaluation of a non healing surgical scar wound. Patient reports the scar appears to be bruising and turning black and blue which prompted her to visit the ED. Patient denies recent fever, chills, headache or dizziness. Patient denies recent nausea, vomiting, diarrhea or constipation. Patient denies chest pain or shortness of breath. Documentation prepared by Evens Meza, acting as director biomedical engineering for Angel Jacobs MD. <Evens Meza - Last Filed: 04/29/17 11:49> - Resident Resident Name: Oc Prather - ED Attending Attestation I have performed the following: I have examined & evaluated the patient, The case was reviewed & discussed with the resident, I agree w/resident's findings & plan, Exceptions are as noted - Physicial Exam PE: 04/29/17 12:01 Patient is awake and alert, nontoxic-appearing, in no distress. nc, atr perrla, eomi cta neck: +3cm vertical midline cervical scar with some granulation tissue noted distally, without discharge or induration or fluctuance. - Medical Decision Making 04/29/17 12:02 Patient is a 47-year-old female with questionable history of rheumatoid arthritis, chronic upper and lower back pain, status post cervical surgery in December 2016 who presents to the ER with a poorly healing cervical incision scar without evidence of acute infection. Will place gauze dressing over the healing scar and will discharge with wound care follow-up. <Angel Jacobs - Last Filed: 04/29/17 12:03>
[2017-04-29] MEDS ORDERED: FAMOTIDINE 20 MG/50 ML IVPB 20 MG/50 ML MG IVPB ONE (13:29)
[2017-04-29 14:57] VITALS: BP 140/92; PULSE 98; TEMP 99.1
--- NOTE | 2017-04-30 01:06 | CONS ---
DATE OF CONSULTATION: DATE OF DICTATION: 04/29/2017 REASON FOR CONSULTATION: Wound on the back of the neck post recent surgery. HISTORY: Patient is a 47-year-old female seen in the emergency room at [facility]. REQUESTING PHYSICIAN: ER physician. REASON FOR CONSULTATION: Patient's anxiety regarding an open wound on her back of the neck. As per patient, she had undergone surgery by Dr. Baltazar in December of 2016. She feels that since then the wound has not healed, that she has excessive discharge, and she is having anxiety attacks, worse in the last 30 hours. She has not slept and states she feels she is developing gangrene of her skin around the wound. Patient's past history is relevant for several laminectomies, back surgeries. Problem started at the age of 22. Patient states that she was diagnosed as having internal herniated disks for which she has been treated in [place] and multiple other institutions. Past history is relevant for the following conditions: As mentioned, surgical history, including chronic bronchitis, GERD , anxiety attacks, laminectomies x2, micro-diskectomy, lumbar fusion, and left knee arthroscopies x2. Smoker 20 cigarettes a day, on methadone. MEDICATION: Lexapro, Humira 40 mg, Singulair 10 mg, ranitidine, Zantac 150 mg daily, and buspirone. Patient was seen in the emergency room, sitting in a wheelchair. On asking, she states yesterday she has not slept and feels like she will not be able to stand for longer time period, even though she is able to walk, she opted to be seated to avoid any injuries. ALLERGIES: To several items including the following: ADHESIVE TAPE, develops a rash; SULFITE, develops hives and anaphylaxis; HYDROMORPHONE from DILAUDID, severe reaction; MORPHINE, severe reactions; SULFONAMIDES, severe reaction with difficulty breathing; SULFATES, develops hives and swellings. PHYSICAL EXAMINATION: On the examination shows a very well healed scar from midline just below her extends down to the middle of the upper third of her chest. She has other scars also related to spinal surgery in the lower back which are also well healed. The neck scar in the middle portion has recent surgery performed. There is no open wound. There is no discharge. There is some numbness in distal to the incision. The previous incision is covered with new epithelium. The wound is not warm. There is no bulge. In discussing with the patient, she has been taking off the scabs as they developed. She states these scabs get caught in her clothing and causes pain, so she tends to pick it up. Once the scab is removed, the discharge starts. At this stage, a photograph was taken by a camera, and I showed it to the patient, and educated her regarding wound healing as well as the scar nature. I recommended that the scab should be left alone until it falls on its own. That continuously removing of the scabs will cause the new epithelium to break down. Patient was also reassured that there is no gangrene. 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 The right thumb was evaluated; it is within normal color. Function is 100%. Patient was reassured. Her local infection had been taking good care of it and that she did not lose her thumb from the gangrene. Significant time was spent understanding the patient's anxiety and her fears. Also recommended to discontinue cigarette smoking. After spending 40 minutes with the patient, she felt reassured, and especially after the photographs were evaluated with her. Patient was then to be discharged by the ER physician with instructions. FINAL DIAGNOSIS: There is a well healed scar on the upper chest and the cervical area. New epithelium is present. There is no discharge. There is no redness, and no infection has been noted. Thank you for this consult. SAMSON VIDES M.D. [id number]
== END 2017-04-29 14:57 | disposition home or self-care (01) ==
LOC: JER 10:13
DX: T81.30XA Disruption of wound, unspecified, initial encounter (principal); G89.29 Other chronic pain; X58.XXXA Exposure to other specified factors, initial encounter; Y93.9 Activity, unspecified; K58.9 Irritable bowel syndrome, unspecified
CPT/HCPCS: 99282-25

== ENCOUNTER 2018-04-29 15:55 | Emergency (ER) | payer OTHER ==
[2018-04-29 16:01] VITALS: TEMP 98.1; BMI 33.7
--- NOTE | 2018-04-29 17:09 | PDOC ---
History of Present Illness - General Chief Complaint: Chest Pain Stated Complaint: CHEST PAIN Time Seen by Provider: 04/29/18 16:22 History Source: Patient Exam Limitations: No Limitations - History of Present Illness Initial Comments: 04/29/18 17:12 Pt. is a 48 y.o. F w/ PMHx. including but not exclusive to chronic back pain, Fibromyalgia, TMJ, depression, arthritis, and polysubstance abuse( Nicotine, heroin) presents with chest pressure and shortness of breath since ~4pm today. Pt. states that the chest pressure and shortness of breath started while at rest and denies association with food, position or exertion. Pt. states that lately she has been under stress lately form her step mother's mother dying recently. Pt. endorses dizziness, "feels like she is on the ocean," hemorrhoids and lower extremity weakness. Pt. endorses being positive for non-hemolytic febrile transfusion reaction gene. Pt. is able to walkabout 20 stairs before her legs "giving out." Pt. dneies any fever, chills, nausea, vomiting, diarrhea , or sudden change in vision. 04/29/18 17:14 Troponins, EKG, CMP, CBC, PT/INR and D-dimer sent to rule out PE vs. cardiac etiology for chest pain. Pt. started on IVF. 04/29/18 21:10 EKG normal, Troponins negative, CTA negative for PE, Pt. is stable for discharge with conditions for return. 04/29/18 21:25 Pt. left AMA with IV still in. Police Notified. 04/29/18 21:31 Timing/Duration: 1-3 hours Severity: moderate Modifying Factors: worse with: eating, medication, movement Associated Symptoms: reports: chest pain, shortness of breath, weakness. denies : nausea/vomiting Aspirin Received prior to arrival: Yes: 81 mg x 1 Beta Sandrita Contraindications(Core Measure): Yes: Not Prescribed Past History - Travel Traveled outside of the country in the last 30 days: No Close contact w/someone who was outside of country & ill: No - Past Medical History Allergies/Adverse Reactions: Allergies Allergy/AdvReac Type Severity Reaction Status Date / Time adhesive tape Allergy Intermediate Rash Verified 04/29/18 15:58 sulfite Allergy Hives/ANAPH Verified 04/29/18 15:58 YLAXIS hydromorphone HCl AdvReac Severe Verified 04/29/18 15:58 [From Dilaudid] morphine AdvReac Severe Verified 04/29/18 15:58 Sulfa (Sulfonamide AdvReac Severe Difficulty Verified 04/29/18 15:58 Antibiotics) Breathing sulfates Allergy hives, Uncoded 04/29/18 15:58 swelling Home Medications: Ambulatory Orders Escitalopram Oxalate [Lexapro -] 20 mg PO DAILY 10/04/13 Adalimumab [Humira] 40 mg SQ ASDIR 08/04/16 Montelukast Na [Singulair -] 10 mg PO DAILY 08/04/16 Ranitidine [Zantac -] 150 mg PO DAILY 08/04/16 Buspirone HCl [Buspar -] 10 mg PO BID 01/13/17 Anemia: No Asthma: No Cancer: No Cardiac Disorders: Yes (TACHICARDIA/WORKUP NEG) CVA: No COPD: Yes (CHRONIC BRONCHITIS) CHF: No Dementia: No Diabetes: No GI Disorders: Yes (GERD/IBS) Disorders: No HTN: No (LOW BP) Hypercholesterolemia: No Liver Disease: No Psychiatric Problems: Yes (anxiety, depression, substance abuse ) Seizures: No Thyroid Disease: No - Surgical History Abdominal Surgery: No Appendectomy: No Cardiac Surgery: No Cholecystectomy: No Lung Surgery: No Neurologic Surgery: (BACK SURGERIES) Orthopedic Surgery: Yes (laminectomy x 2, microdiscectomy/LUMBAR FUSION/LEFT KNEE ARTHROSCOPIES X 2/) - Immunization History Immunization Up to Date: Yes - Suicide/Smoking/Psychosocial Hx Smoking Status: Yes Smoking History: Current every day smoker Have you smoked in the past 12 months: Yes Number of Cigarettes Smoked Daily: 20 Information on smoking cessation initiated: No 'Breaking Loose' booklet given: 11/17/16 Hx Alcohol Use: No Drug/Substance Use Hx: No Substance Use Type: None Hx Substance Use Treatment: No Review of Systems - Review of Systems Able to Perform ROS?: Yes Is the patient limited Macedonian proficient: No HEENTM: No: Recent change in vision Respiratory: Yes: Cough (chronic dry cough ), Shortness of Breath, SOB with Exertion, SOB at Rest. No: Wheezing, Hemoptysis Cardiac (ROS): Yes: Chest Pain. No: Edema, Lightheadedness ABD/GI: Yes: Constipated (chronic ), Poor Fluid Intake, Rectal Bleeding (known hemorrhoids, scant blood ). No: Diarrhea, Nausea, Vomiting : No: Burning, Dysuria, Discharge, Frequency, Flank Pain, Hematuria, Pain, Urgency Musculoskeletal: Yes: Back Pain, Joint Pain, Muscle Weakness, Neck Pain Integumentary: No: Symptoms Reported Neurological: Yes: Pre-Existing Deficit, Weakness, Dizziness. No: Headache, Numbness, Paresthesia Psychiatric: Yes: Anxiety, Depression, Stressors Endocrine: No: Symptoms Reported Hematologic/Lymphatic: Yes: See HPI, Blood Clots, Easy Bleeding *Physical Exam - Vital Signs Last Vital Signs Temp Pulse Resp BP Pulse Ox 98.1 F 91 H 18 102/63 99 04/29/18 15:59 04/29/18 15:59 04/29/18 15:59 04/29/18 15:59 04/29/18 15:59 - Physical Exam General Appearance: Yes: Nourished, Appropriately Dressed, Obese HEENT: positive: MALLIKA, Normal Voice, Symmetrical, Pharynx Normal, Hearing Grossly Normal Neck: positive: Trachea midline, Supple Respiratory/Chest: positive: Lungs Clear, Normal Breath Sounds, Decreased Breath Sounds (poor effort 2/2 pain?). negative: Chest Tender, Accessory Muscle Use, Labored Respiration, Crackles, Rales, Rhonchi, Wheezing Cardiovascular: positive: Regular Rhythm, Regular Rate, S1, S2. negative: Edema , JVD, Murmur Vascular Pulses: Dorsalis-Pedis (R): 2+, Doralis-Pedis (L): 2+ Gastrointestinal/Abdominal: positive: Normal Bowel Sounds. negative: Protuberent, Guarding, Rebound, Tenderness Rectal Exam: positive: deferred Musculoskeletal: positive: Normal Inspection. negative: CVA Tenderness Extremity: positive: Normal Capillary Refill, Normal Inspection, Normal Range of Motion. negative: Pedal Edema, Swelling, Calf Tenderness, Erythema Integumentary: positive: Normal Color, Dry, Warm Neurologic: positive: documentation clerk II-XII NML intact, Fully Oriented, Alert, Normal Mood/ Affect, Normal Response, Respond to painful stimul, Responsive Moderate Sedation - Procedure Monitoring Vital Signs: Procedure Monitoring Vital Signs Temperature 98.1 F 04/29/18 15:59 Pulse Rate 91 H 04/29/18 15:59 Respiratory Rate 18 04/29/18 15:59 Blood Pressure 102/63 04/29/18 15:59 O2 Sat by Pulse Oximetry (%) 99 04/29/18 15:59 ED Treatment Course - LABORATORY CBC & Chemistry Diagram: 04/29/18 17:00 04/29/18 17:00 *DC/Admit/Observation/Transfer Diagnosis at time of Disposition: Shortness of breath - Discharge Dispostion Disposition: HOME Condition at time of disposition: Stable Decision to Admit order: No - Referrals - Patient Instructions Printed Discharge Instructions: DI for Atypical Chest Pain, DI for Chest Pain Additional Instructions: You came to the ED for chest pain and for shortness of breath. We ran some tests which showed no immediate concern for your heart or your lungs. Please continue to take your medications as prescribed. Please follow up with your Primary Care Physician within 1 week. Please return to the ED if you are experiencing worsening chest pain or shortness of breath, fevers, chills or any concerning symptoms. - Post Discharge Activity
--- NOTE | 2018-04-29 17:27 | PDOC ---
Attending Attestation - HPI HPI: 04/29/18 18:20 The patient is a 48 year old female, with a significant past medical history of chronic back pain, fibromyalgia, TMJ, irritable bowel syndrome, depression, arthritis, who presents to the emergency department with, chest discomfort onsetting at 3:30pm. She describes it as sudden onset pressure, radiating to her right arm lasting 1 minute. She took nitroglycerin, without relief prompting her visit to the ER. Patient endorses being under a significant amount of stress lately. She denies recent fevers, chills, headache or dizziness. She denies recent nausea, vomit, diarrhea or constipation. She denies recent dysuria, frequency, urgency or hematuria. - Physicial Exam PE: 04/29/18 18:20 GENERAL: Awake, alert, and fully oriented, in no acute distress HEAD: No signs of trauma NECK: Normal ROM, supple, no lymphadenopathy, JVD, or masses LUNGS: Breath sounds equal, clear to auscultation bilaterally. No wheezes, and no crackles HEART: Regular rate and rhythm, normal S1 and S2, no murmurs, rubs or gallops +ABDOMEN: Epigastric discomfort. Soft. No guarding, no rebound. No masses EXTREMITIES: Normal range of motion, no edema. No clubbing or cyanosis. No cords, erythema, or tenderness NEUROLOGICAL: Cranial nerves II through XII grossly intact. Normal speech. SKIN: Warm, Dry, normal turgor, no rashes or lesions noted. <Dalton Bernabe - Last Filed: 04/29/18 18:20> - Resident Resident Name: Kit Capone - ED Attending Attestation I have performed the following: I have examined & evaluated the patient, The case was reviewed & discussed with the resident, I agree w/resident's findings & plan, Exceptions are as noted - Medical Decision Making 04/29/18 17:27 A portion of this note was documented by scribe services under my direction. I have reviewed the details of the note, within reason, and agree with the documentation with the following case summary and management plan written by me. Patient treated in the ED. Nursing notes are reviewed and incorporated into the medical decision-making. Vital signs reviewed. Peripheral IV access obtained by the nurse, laboratory studies are drawn and sent, reviewed and interpreted by myself. Vital Signs Temp Pulse Resp BP Pulse Ox 98.1 F 91 H 18 102/63 99 04/29/18 15:59 04/29/18 15:59 04/29/18 15:59 04/29/18 15:59 04/29/18 15:59 48-year-old female patient with history of chronic back pain, fibromyalgia, TMJ , irritable bowel syndrome, depression, arthritis presents with chest discomfort since 3:30 PM. The patient has been under stress lately with home issues. However, the patient reported in approximately 1 minute that she felt sudden onset of chest pressure with radiation to right arm. She thinks there may have been some shortness of breath associated with it. Patient attempted to take nitroglycerin glycerin with no relief of symptoms. She reports no exertional component to this. Reports some pleuritic component. Denies recent illnesses, fevers, chills, cough, vomiting. Patient denies history of pulmonary embolism. Patient reported the pain had subsided down to 5 out of 10 from 7 out of 10. The patient denies any exertional component. States that there is some chest discomfort. Given her smoking history and her past medical history, we'll be need to rule out myocardial infarction. We'll need to review the EKG. EKG is unremarkable and has 2 negative troponins and the d-dimer is negative, the patient follow-up as an outpatient with cardiology. However, the patient has worsening chest pain and an abnormal workup, the patient should be admitted to the hospital for further management. <Rashawn Robles - Last Filed: 04/29/18 18:57> Heart Score/ECG Review #1 ECG reviewed & interpreted by me at: 18:50 04/29/18 18:56 NSR 89, no std/minh, QTC 503 msec, normal axis, normal intervals <Rashawn Robles - Last Filed: 04/29/18 18:57> Attestations - Attestations 04/29/18 18:21 Documentation prepared by Dalton Bernabe, acting as biomedical technician for Rashawn Robles MD. <Dalton Bernabe - Last Filed: 04/29/18 18:20>
[2018-04-29] MEDS ORDERED: SODIUM CHLORIDE 1,000 ML IV SCH (17:30)
[2018-04-29 17:56] LABS: EOS % 2.8 % (0-4.5); HEMATOCRIT 42.1 % (32.4-45.2); HEMOGLOBIN 14.9 GM/dL (10.7-15.3); LYMPH % 32.5 % (8-40); MCH 29.8 pg (25.7-33.7); MCHC 35.4 g/dl (32.0-36.0); MEAN CELL VOLUME 84.4 fl (80-96); MEAN PLT VOLUME 7.9 fl (7.5-11.1); MONO % 7.3 % (3.8-10.2); NEUT % 56.4 % (42.8-82.8); PLATELET COUNT 281 K/MM3 (134-434); RBC 4.99 M/mm3 (3.60-5.2); RDW 13.3 % (11.6-15.6); WHITE BLOOD COUNT 8.6 K/mm3 (4.0-10.0)
[2018-04-29] MEDS ORDERED: FAMOTIDINE 20 MG/50 ML IVPB 20 MG/50 ML MG IVPB ONE ×2 (18:01→18:26)
[2018-04-29 18:11] LABS: INR 1.06 (0.83-1.09); PROTHROMBIN TIME (PATIENT) 12.5 SEC (9.7-13.0)
[2018-04-29 18:27] LABS: ANION GAP 5 MMOL/L (8-16); BLOOD UREA NITROGEN 12 mg/dL (7-18); CALCIUM 8.5 mg/dL (8.5-10.1); CHLORIDE 110 mmol/L (98-107); CO2 25 mmol/L (21-32); CREATININE 0.8 mg/dL (0.55-1.3); GLUCOSE,RANDOM 88 mg/dL (74-106); POTASSIUM 4.2 mmol/L (3.5-5.1); SODIUM 140 mmol/L (136-145)
[2018-04-29 21:29] VITALS: BP 132/80; PULSE 98
--- NOTE | 2018-04-30 09:16 | EKG ---
Test Reason : Blood Pressure : / mmHG Vent. Rate : 089 BPM Atrial Rate : 089 BPM P-R Int : 138 ms QRS Dur : 074 ms QT Int : 414 ms P-R-T Axes : 064 029 036 degrees QTc Int : 503 ms NORMAL SINUS RHYTHM POSSIBLE LEFT ATRIAL ENLARGEMENT PROLONGED QT ABNORMAL ECG WHEN COMPARED WITH ECG OF 20-JAN-2017 06:50, NONSPECIFIC T WAVE ABNORMALITY, IMPROVED IN INFERIOR LEADS NONSPECIFIC T WAVE ABNORMALITY NO LONGER EVIDENT IN LATERAL LEADS Confirmed by LAQUTIA PULIDO, TJ ([id number]) on 04/30/2018 9:16:20 AM Referred By: Confirmed By:TJ COELHO MD
== END 2018-04-29 21:52 | disposition home or self-care (01) ==
LOC: JER 15:55
PROC: 3E033GC Introduction of Other Therapeutic Substance into Peripheral Vein, Percutaneous Approach (ICD-10-PCS; principal; 2018-04-29)
DX: R07.9 Chest pain, unspecified (principal); R06.02 Shortness of breath; F32.9 Major depressive disorder, single episode, unspecified; J44.9 Chronic obstructive pulmonary disease, unspecified; M79.7 Fibromyalgia; F11.10 Opioid abuse, uncomplicated; F17.210 Nicotine dependence, cigarettes, uncomplicated
CPT/HCPCS: 36415; 71275-TC; 80048; 84484; 84703; 85025; 85379; 85610; 93005; 93010; 99284-25; J7030

== ENCOUNTER 2018-09-16 05:23 | Inpatient (IN) | payer OTHER ==
[2018-09-13 14:31] VITALS: BMI 33.7
[2018-09-16] MEDS ORDERED: GENTAMICIN SO4 80 MG/2 ML VIAL ONE (07:26)
[2018-09-16] MEDS ORDERED: THROMBIN (BOVINE) 20,000 UNIT VIAL TP ONE (07:26)
[2018-09-16] MEDS ORDERED: LIDOCAINE 1%-EPI 1:100,000 30 ML MDV IJ ONE (07:26)
[2018-09-16] MEDS ORDERED: BUPIVACAINE HCL/PF 0.5% (5MG/ML) 10 ML VIAL ONE ×2 (07:26→10:01)
[2018-09-16] MEDS ORDERED: PROPOFOL 20 ML ONE ×6 (09:50→12:09)
[2018-09-16] MEDS ORDERED: SUCCINYLCHOLINE CHLORIDE 200 MG/10 ML VIAL ONE (09:50)
[2018-09-16] MEDS ORDERED: MIDAZOLAM HCL 2 MG/2 ML SINGLE DOSE VIAL ONE ×3 (09:50→10:01)
[2018-09-16] MEDS ORDERED: MORPHINE 5 MG/10 ML AMP - FOR COMPOUNDING USE ONLY ONE (09:50)
[2018-09-16] MEDS ORDERED: ceFAZolin SODIUM 1 GM VIAL ONE (09:51)
[2018-09-16] MEDS ORDERED: BUPIVACAINE LIPOSOME/PF (EXPAREL) 266 MG/20 ML VIAL ONE (10:04)
--- NOTE | 2018-09-16 10:12 | HP ---
History & Physical Update - History History: No Change - Physical Physical: No Change - Assessment Assessment: No Change - Plan Plan: No Change (Full H&P in chart from 08/30/18)
[2018-09-16] MEDS ORDERED: DEXMEDETOMIDINE HCL 200 MCG/2 ML IVPB ONE (10:21)
[2018-09-16] MEDS ORDERED: DEXAMETHASONE SOD PHOSPHATE 4 MG/1 ML VIAL ONE ×2 (10:28→12:28)
[2018-09-16] MEDS ORDERED: LIDOCAINE HCL/PF 2% SDV 5ML VIAL ONE (10:29)
[2018-09-16] MEDS ORDERED: ONDANSETRON 4 MG/2 ML VIAL ONE ×2 (10:29→12:28)
[2018-09-16] MEDS ORDERED: KETAMINE HCL 200 MG/20 ML VIAL ONE (10:30)
[2018-09-16] MEDS ORDERED: ROCURONIUM BROMIDE 50 MG/5 ML VIAL ONE (10:31)
[2018-09-16] MEDS ORDERED: VANCOMYCIN 1,000 MG VIAL (RESTRICTED TO ID ONLY) IVPB ONE (10:41)
[2018-09-16] MEDS ORDERED: ceFAZolin SODIUM 1 GM VIAL IVPB ONE (10:41)
[2018-09-16] MEDS ORDERED: PHENYLEPHRINE HCL 10 MG/1 ML SINGLE DOSE VIAL ONE (10:56)
[2018-09-16] MEDS ORDERED: VANCOMYCIN 1,000 MG VIAL (RESTRICTED TO ID ONLY) ONE (11:00)
[2018-09-16] MEDS ORDERED: THROMBIN (BOVINE) 5,000 UNIT VIAL TP ONE (11:06)
[2018-09-16] MEDS ORDERED: HYDROGEN PEROXIDE 473 ML PO ONE (11:06)
[2018-09-16] MEDS ORDERED: BACITRACIN 50,000 UNITS VIAL TP ONE (11:06)
[2018-09-16] MEDS ORDERED: GELATIN, ABSORBABLE 12-7MM EACH SPONGE TP ONE (11:06)
[2018-09-16] MEDS ORDERED: DESFLURANE GAS 240 ML BOTTLE IH ONE (11:22)
[2018-09-16] MEDS ORDERED: ONDANSETRON 4 MG/2 ML VIAL IVPUSH PRN (11:33)
[2018-09-16] MEDS ORDERED: ACETAMINOPHEN INJECTION 100 ML IVPB ONE (11:39)
[2018-09-16] MEDS ORDERED: ACETAMINOPHEN 1000 MG/100 ML VIAL (NON FORMULARY) IVPB SCH (11:45)
[2018-09-16] MEDS ORDERED: LACTATED RINGERS SOLUTION 1,000 ML IV SCH (11:45)
[2018-09-16] MEDS ORDERED: BUPIVACAINE HCL/PF (5 MG/ML) 30 ML VIAL IJ ONE (12:10)
[2018-09-16] MEDS ORDERED: BUPIVACAINE LIPOSOME/PF (EXPAREL) 266 MG/20 ML VIAL NR ONE (12:10)
[2018-09-16] MEDS ORDERED: GLYCOPYRROLATE 0.2 MG/1 ML VIAL ONE (13:02)
[2018-09-16] MEDS ORDERED: NEOSTIGMINE METHYLSULFATE 0.5 MG/1 ML - 10 ML MDV ONE (13:02)
[2018-09-16] MEDS ORDERED: diphenhydrAMINE HCL 25 MG CAPSULE (FP) PO PRN (13:21)
--- NOTE | 2018-09-16 13:36 | OP ---
Operative Note - Note: Operative Date: 09/16/18 Pre-Operative Diagnosis: Cervical spondylosis Operation: C2-3 posterior fusion Post-Operative Diagnosis: Same as Pre-op Surgeon: Reed Hood Machine Stamper: Evens Sarmiento Anesthesiologist/ELECTRICIAN SUPERVISOR AIRPLANE: Damaris Perez Anesthesia: General Estimated Blood Loss (mls): 25 Operative Report Dictated: Yes
[2018-09-16] MEDS ORDERED: DOCUSATE SODIUM 100 MG CAPSULE (FP) PO SCH (14:00)
[2018-09-16] MEDS ORDERED: HEPARIN NA (PORCINE) 5,000 UNITS/ML 1ML VIAL SQ SCH (14:00)
--- NOTE | 2018-09-16 15:12 | PN ---
Progress Note, Physician Chief Complaint: 48 yr old female with h/o depression fibromyalgia,arthritis came in for neck surgery patient seen in PACU s/p C2-C3 posterior fusion - Current Medication List Current Medications: Active Medications Acetaminophen (Ofirmev Injection -) 1,000 mg IVPB Q6H FREDA Stop: 09/17/18 05:46 Diphenhydramine HCl (Benadryl -) 25 mg PO Q6H PRN PRN Reason: FOR ITCHING Docusate Sodium (Colace -) 100 mg PO TID FREDA Ferrous Sulfate (Feosol -) 325 mg PO DAILY FREDA Folic Acid (Folic Acid -) 1 mg PO DAILY FREDA Heparin Sodium (Porcine) (Heparin -) 5,000 unit SQ TID FREDA Lactated Ringer's (Lactated Ringers Solution) 1,000 mls @ 125 mls/hr IV ASDIR FREDA Cefazolin Sodium (Ancef 1 Gm Premixed Ivpb -) 1 gm in 50 mls @ 100 mls/hr IVPB Q8H-IV FREDA Stop: 09/17/18 17:59 Ondansetron HCl (Zofran Injection) 4 mg IVPUSH Q6H PRN PRN Reason: NAUSEA AND/OR VOMITING - Objective Vital Signs: Vital Signs Temperature 98.8 F 09/16/18 13:12 Pulse Rate 85 09/16/18 14:25 Respiratory Rate 18 09/16/18 14:25 Blood Pressure 96/51 L 09/16/18 14:25 O2 Sat by Pulse Oximetry (%) 97 09/16/18 14:25 Constitutional: Yes: Calm Neck: Yes: Other (neck collar) Cardiovascular: Yes: Regular Rate and Rhythm, S1, S2 Respiratory: Yes: CTA Bilaterally Gastrointestinal: Yes: Normal Bowel Sounds, Soft Edema: No Neurological: Yes: Alert, Oriented, Other (able to move all extermities sensation in tact) Problem List - Problems (1) Cervical spondylosis Assessment/Plan: s/p C2-C3 posterior fusion patient does not want narcotic medication neck CT ordered wants to go home later tonight iv abx iv tylenol dvt ppx Code(s): M47.812 - SPONDYLOSIS W/O MYELOPATHY OR RADICULOPATHY, CERVICAL REGION (2) depression Assessment/Plan: lexapro buspirone bid
--- NOTE | 2018-09-16 15:53 | DS ---
Physical Examination Vital Signs: Vital Signs Temperature 98.8 F 09/16/18 13:12 Pulse Rate 85 09/16/18 14:25 Respiratory Rate 18 09/16/18 14:25 Blood Pressure 96/51 L 09/16/18 14:25 O2 Sat by Pulse Oximetry (%) 97 09/16/18 14:25 Constitutional: Yes: Calm Cardiovascular: Yes: Regular Rate and Rhythm, S1, S2 Respiratory: Yes: CTA Bilaterally Gastrointestinal: Yes: Normal Bowel Sounds, Soft Edema: No Neurological: Yes: Alert, Oriented Discharge Summary Reason For Visit: C 23 STENOSIS & INSTABILITY Current Active Problems Cervical spondylosis (Acute) Hospital Course: 48 yr old female with depression and arthirits came in for c spien surgery for cervical spondylosis- c2-c3 fusion now ready to go home Condition: Improved - Instructions Diet, Activity, Other Instructions: donot take aspirin for 3 days Referrals: Reed Hood MD, FAANS [Staff Physician] - 1 Week Yecenia Salazar MD [Staff Physician] - 2 Weeks Disposition: HOME - Home Medications Comprehensive Discharge Medication List: Ambulatory Orders Escitalopram Oxalate [Lexapro -] 20 mg PO DAILY 10/04/13 Ranitidine [Zantac -] 150 mg PO DAILY 08/04/16 Buspirone HCl [Buspar -] 10 mg PO BID 01/13/17 Aspirin Coated [Ecotrin -] 81 mg PO DAILY 09/13/18 Fenofibrate 54 mg PO DAILY 09/13/18 Iron 65 mg PO UTDICT 09/13/18 Methadone [Dolophine -] 5 mg PO BID 09/13/18 Mirtazapine 7.5 mg PO DAILY 09/13/18 Pramipexole Dihydrochloride [Mirapex -] 0.125 mg PO DAILY 09/13/18 Sennosides [Senna] 2 tab PO DAILY 09/13/18
[2018-09-16 17:40] VITALS: TEMP 97.8
[2018-09-16 17:51] VITALS: BP 113/77; PULSE 88
[2018-09-16] MEDS ORDERED: CEFAZOLIN 1 GM/D5W 1 GM/50 ML BAG IVPB SCH (18:00)
[2018-09-17] MEDS ORDERED: FOLIC ACID 1 MG TABLET (FP) PO SCH (10:00)
[2018-09-17] MEDS ORDERED: FERROUS SO4 325 MG TABLET (FP) PO SCH (10:00)
--- NOTE | 2018-09-27 14:40 | SURG ---
Surgery Cash Office Worker Note Cash Office Worker: Evens Sarmiento PA-C Date of Service: 09/27/18 Diagnosis: Cervical Spondylotic Myelopathy Procedure: 1. Fluoroscopy 2. Local autograft 3. Microdissection 4. Posterior instrumentation C2-C3 (technically challenging) 5. C2 Laminectomy 6. Reoperative C3 Laminectomy 7. C2/3 Posterior/Lateral Arthrodesis 8. Bilateral soft tissue advancement flaps (20 cm^2) 9. Repair of pseudomeningiocele 10. Baptism of lordosis I was present for the entirety of the operative procedure. For further detail, please refer to operative report. Visit type - Case Type Case Type: Scheduled - Emergency Emergency Visit: No - New patient This patient is new to me today: Yes Date on this admission: 09/27/18 - Critical Care Critical Care patient: No
== END 2018-09-16 17:25 | disposition home or self-care (01) | DRG 454 ==
LOC: JSAMEDAYSX 05:23 → EDSTATUS 08:00
PROVIDERS: ADMIT Family Medicine; ATTEND Family Medicine
PROC: 0RG1071 Fusion of Cervical Vertebral Joint with Autologous Tissue Substitute, Posterior Approach, Posterior Column, Open Approach (ICD-10-PCS; 2018-09-16)
PROC: 00QT0ZZ Repair Spinal Meninges, Open Approach (ICD-10-PCS; 2018-09-16)
PROC: 00NW0ZZ Release Cervical Spinal Cord, Open Approach (ICD-10-PCS; 2018-09-16)
PROC: 0JR707Z Replacement of Back Subcutaneous Tissue and Fascia with Autologous Tissue Substitute, Open Approach (ICD-10-PCS; 2018-09-16)
PROC: B01BZZZ Fluoroscopy of Spinal Cord (ICD-10-PCS; 2018-09-16)
PROC: 0RG10AJ Fusion of Cervical Vertebral Joint with Interbody Fusion Device, Posterior Approach, Anterior Column, Open Approach (ICD-10-PCS; principal; 2018-09-16 08:00)
DX: M47.12 Other spondylosis with myelopathy, cervical region (principal); G97.82 Other postprocedural complications and disorders of nervous system; G97.0 Cerebrospinal fluid leak from spinal puncture; F32.9 Major depressive disorder, single episode, unspecified; M79.7 Fibromyalgia; G96.19 Other disorders of meninges, not elsewhere classified; Y83.8 Other surgical procedures as the cause of abnormal reaction of the patient, or of later complication, without mention of misadventure at the time of the procedure
CPT/HCPCS: 36415; 72125-TC; 76000-TC-FY; 80053; 81003; 84703; 85025; 85610; 86850; 86900; 86901; 94760; J0131

== ENCOUNTER 2019-01-14 06:18 | Day surgery (SDC) | payer OTHER ==
[2019-01-13 10:27] VITALS: BMI 30.7
[2019-01-14 06:50] VITALS: TEMP 98.3
[2019-01-14] MEDS ORDERED: BUPIVACAINE HCL/PF 0.25% (2.5MG/ML) 10 ML VIAL ONE (07:26)
[2019-01-14] MEDS ORDERED: methylPREDNISolone ACET (DEPO) 80 MG/1 ML VIAL ONE ×2 (07:26→07:42)
[2019-01-14] MEDS ORDERED: SUCCINYLCHOLINE CHLORIDE 200 MG/10 ML SYRINGE ONE (07:55)
[2019-01-14] MEDS ORDERED: MIDAZOLAM HCL 2 MG/2 ML SINGLE DOSE VIAL ONE ×2 (07:55→08:12)
[2019-01-14] MEDS ORDERED: PROPOFOL 20 ML ONE ×2 (07:55)
--- NOTE | 2019-01-14 07:56 | HP ---
Admitting History and Physical - Primary Care Physician PCP: Yecenia Salazar - Admission Chief Complaint: Neck Pain History of Present Illness: Pt has history of cervical fusion with complaint of axial neck pain. History Source: Patient - Past Medical History Pulmonary: Yes: Bronchitis, Other (Allergies) Gastrointestinal: Yes: Constipation, GERD, Hemorrhoids Renal/: Yes: UTI ...LMP: 10/24/18 Psych: Yes: Depression Musculoskeletal: Yes: Chronic low back pain, Other (Spinal stenosis, spondylolithesis) ENT: Yes: Allergic Rhinitis - Past Surgical History Past Surgical History: Yes: Arthrosocopy (Left knee x3), , Laminectomy (L4-L5 bilateral laminectomy and mircodiscectomy) - Smoking History Smoking history: Current every day smoker Have you smoked in the past 12 months: Yes Aproximately how many cigarettes per day: 20 - Alcohol/Substance Use Hx Alcohol Use: No History of Substance Use: reports: None - Social History ADL: Independent History of Recent Travel: No Home Medications - Allergies Allergies/Adverse Reactions: Allergies Allergy/AdvReac Type Severity Reaction Status Date / Time adhesive tape Allergy Intermediate Rash Verified 01/14/19 06:40 sulfite Allergy Hives/ANAPH Verified 01/14/19 06:40 YLAXIS hydromorphone HCl AdvReac Severe Verified 01/14/19 06:40 [From Dilaudid] morphine AdvReac Severe Verified 01/14/19 06:40 Sulfa (Sulfonamide AdvReac Severe Difficulty Verified 01/14/19 06:40 Antibiotics) Breathing sulfates Allergy hives, Uncoded 01/14/19 06:40 swelling - Home Medications Home Medications: Ambulatory Orders Escitalopram Oxalate [Lexapro -] 20 mg PO DAILY 10/04/13 Ranitidine [Zantac -] 150 mg PO DAILY 08/04/16 Buspirone HCl [Buspar -] 10 mg PO BID 01/13/17 Fenofibrate 54 mg PO HS 09/13/18 Iron 65 mg PO UTDICT 09/13/18 Methadone [Dolophine -] 5 mg PO HS 09/13/18 Mirtazapine 7.5 mg PO HS 09/13/18 Pramipexole Dihydrochloride [Mirapex -] 0.125 mg PO HS 09/13/18 Sennosides [Senna -] 2 tab PO DAILY 09/13/18 Clonazepam [Klonopin] 1 mg PO BID 01/13/19 Cyanocobalamin (Vitamin B-12) [Vitamin B12] 5,000 mcg PO ASDIR 01/13/19 Methadone [Dolophine -] 10 mg PO DAILY 01/13/19 Multivitamin [Multiple Vitamins] 1 each PO DAILY 01/13/19 Mv-Mn/Iron/Folic Acid/Herb 190 [Vitamin D3 Complete Caplet] 1 each PO DAILY Physical Examination Vital Signs: Vital Signs Temperature 98.3 F 01/14/19 06:49 Pulse Rate 96 H 01/14/19 06:49 Respiratory Rate 16 01/14/19 06:49 Blood Pressure 108/71 01/14/19 06:49 O2 Sat by Pulse Oximetry (%) 96 01/14/19 06:49
[2019-01-14] MEDS ORDERED: BUPIVACAINE HCL/PF 0.5% (5 MG/ML) 30 ML VIAL IJ ONE ×4 (08:07→08:25)
[2019-01-14] MEDS ORDERED: IOHEXOL 180 MG/1 ML ML IJ ONE (08:26)
[2019-01-14] MEDS ORDERED: ACETAMINOPHEN 325 MG TABLET (FP) PO PRN (08:46)
[2019-01-14] MEDS ORDERED: ONDANSETRON 4 MG/2 ML VIAL IVPUSH PRN (08:46)
[2019-01-14] MEDS ORDERED: LACTATED RINGERS SOLUTION 1,000 ML IV SCH (09:00)
[2019-01-14 09:52] VITALS: BP 105/65; PULSE 87
--- NOTE | 2019-01-14 12:38 | PROC ---
Procedure Note Procedure: Pre-Procedure Diagnosis: Cervical Spondylosis Post-Procedure Diagnosis: Cervical Spondylosis Procedure: BILATERAL C3, C4, C5 Medial Branch Block Anesthesia: MAC After the risks and benefits were explained, informed consent was obtained. The patient was then taken to the procedure room and positioned prone on the procedure table. Time out was performed. The region overlying the appropriate vertebral bodies was identified using fluoroscopy. The skin was prepped and draped in the usual sterile fashion. The skin and soft tissues were anesthetized using 1% lidocaine. Using fluoroscopic guidance, 25 gauge 3.5 inch spinal needles were then introduced to the fossa at the center of the waists of the articular pillars where the BILATERAL C3, C, and C5 medial branches are located.[id number] confirmed appropriate needle placement. There was no epidural or vascular flow observed. .5% bupivacaine was drawn into a syringe. 0.5cc of this solution was then injected at each level. The same procedure was repeated on the LEFT side at the same levels. The patient tolerated the procedure well and there were no complications. The patient was taken to the post procedure recovery area in good condition. Vital signs remained stable before, during, and after the procedure. The patient was given oral and written follow-up instructions. The patient was given a follow up appointment with me in the near future.
== END 2019-01-14 09:56 | disposition home or self-care (01) ==
LOC: JASU-SURG 06:18
PROVIDERS: ATTEND Pain Medicine Pain Medicine
PROC: BR14YZZ Fluoroscopy of Cervical Facet Joint(s) using Other Contrast (ICD-10-PCS; 2019-01-14)
PROC: 3E0T33Z Introduction of Anti-inflammatory into Peripheral Nerves and Plexi, Percutaneous Approach (ICD-10-PCS; principal; 2019-01-14 08:00)
DX: M47.892 Other spondylosis, cervical region (principal)
CPT/HCPCS: 76000-TC-FY; 84703

== ENCOUNTER 2020-01-13 04:57 | Day surgery (SDC) | payer OTHER ==
[2020-01-12 15:23] VITALS: BMI 29.8
--- OUTSIDE RECORDS SUMMARY | 2020-01-13 05:08 | XMS ---
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 (Ammir results) Martin Physician) IG# 0.03 Normal (applies to [facility] 10(3)/uL non-numeric (Ammir results) Martin Physician) EO# 0.18 Normal (applies to [facility] 10(3)/uL non-numeric (Ammir results) Martin Physician) LY% 32 % Normal (applies to [facility] non-numeric (Ammir results) Martin Physician) NE% 58.50 % Normal (applies to [facility] non-numeric (Ammir results) Martin Physician) MO% 6.1 % Normal (applies to [facility] non-numeric (Ammir results) Martin Physician) EO% 2.3 % Normal (applies to [facility] non-numeric (Ammir results) Martin Physician) IG% 0.40 % Normal (applies to [facility] non-numeric (Ammir results) Martin Physician) BA% 1.2 % Normal (applies to [facility] non-numeric (Ammir results) Martin Physician) ID Date Data Source [id number] 07/02/2017 12:00:00 AM EST [facility] (Ammir Martin Physician) Name Value Range Interpretation Description Data Sup porting Code Source(s) Document(s ) T4 FREE, 0.96 Normal (applies to [facility] THYROXINE ng/dL non-numeric (Ammir results) Martin Physician) TSH,3RD 2.40 Normal (applies to [facility] GENERATION uIU/mL non-numeric (Ammir results) Martin Physician) ID Date Data Source [id number] 07/02/2017 12:00:00 AM EST [facility] (Ammir Martin Physician) Name Value Range Interpretation Description Data Sup porting Code Source(s) Document(s ) QUANTIFERON NEGATIVE Normal (applies to [facility] (A mmir (R)TB non-numeric Martin GOLD,INC results) Physician) NIL 0.04 IU/mL Normal (applies to [facility] (Am jeri non-numeric Martin results) Physician) TB ANTIGEN 0.02 IU/mL Normal (applies to [facility] (A mmir MINUS NIL non-numeric Martin results) Physician) MITOGEN >10.00 Normal (applies to [facility] (Amm ir MINUS NIL non-numeric Martin results) Physician) ID Date Data Source [id number] 01/13/2017 12:00:00 AM EDT [facility] (Ammir Martin Physician) Name Value Range Interpretation Description Data Sup porting Code Source(s) Document(s ) Cholesterol 214 Above high normal [facility] [Moles/volume] mg/dL (Ammir in Pericardial Martin fluid Physician) LDL CALCULATION 114.2 Normal (applies [facility] mg/dL to non-numeric (Ammir results) Martin Physician) CHOL/HDL RATIO 4.37 Normal (applies [facility] ratio to non-numeric (Ammir results) Martin Physician) HDL CHOLESTEROL 49 mg/dL Above high normal [facility] (Ammir Martin Physician) VLDL CALCULATION 50.8 Above high normal [facility] N mg/dl (Ammir Martin Physician) TRIGLYCERIDES 254 Above high normal [facility] mg/dL (Ammir Martin Physician) ID Date Data Source [id number] 01/13/2017 12:00:00 AM EDT [facility] (Ammir Martin Physician) Name Value Range Interpretation Description Data Sup porting Code Source(s) Document(s ) GLUCOSE 90 mg/dL Normal (applies [facility] NONFASTING,SERUM to non-numeric (Ammir results) Martin Physician) SODIUM, SERUM 141 Normal (applies [facility] mEq/L to non-numeric (Ammir results) Martin Physician) POTASSIUM, SERUM 4.7 Normal (applies [facility] mEq/L to non-numeric (Ammir results) Martin Physician) CHLORIDE, SERUM 109 Normal (applies [facility] mEq/L to non-numeric (Ammir results) Martin Physician) Anion gap in 9.7 Normal (applies [facility] Body fluid mEq/L to non-numeric (Ammir results) Martin Physician) Carbon dioxide 27 mEq/L Normal (applies [facility] [VFr/PPres] in to non-numeric (Ammir Gas delivery results) Martin system Physician) CREATININE, 0.70 Normal (applies [facility] SERUM mg/dL to non-numeric (Ammir results) Martin Physician) BLOOD UREA 12 mg/dL Normal (applies [facility] NITROGEN to non-numeric (Ammir results) Martin Physician) CALCIUM, SERUM 9.5 Normal (applies [facility] mg/dL to non-numeric (Ammir results) Martin Physician) Microalbumin 4.4 g/dL Normal (applies [facility] [Mass/time] in to non-numeric (Ammir Urine collected results) Martin for unspecified Physician) duration TOTAL PROTEIN 7.0 g/dL Normal (applies [facility] to non-numeric (Ammir results) Martin Physician) Globulin 2.6 gldl Normal (applies [facility] [Mass/time] in to non-numeric (Ammir 24 hour Urine results) Martin Physician) A/G RATIO 1.69 Normal (applies [facility] g/dl to non-numeric (Ammir results) Martin Physician) BILIRUBIN, TOTAL 0.4 Normal (applies [facility] mg/dL to non-numeric (Ammir results) Martin Physician) ALKALINE 91 U/L Normal (applies [facility] PHOSPHATASE, ALP to non-numeric (Ammir results) Martin Physician) ALT (SGPT) 26 U/L Normal (applies [facility] to non-numeric (Ammir results) Martin Physician) AST 27 U/L Normal (applies [facility] to non-numeric (Ammir results) Martin Physician) EGFR AFR 115 Above high normal [facility] ANDORRAN mL/min/1 (Ammir .73m2 Martin Physician) EGFR NON AFR 95 Above high normal [facility] ANDORRAN mL/min/1 (Ammir .73m2 Martin Physician) ID Date Data Source [id number] 01/13/2017 12:00:00 AM EDT [facility] (Ammir Martin Physician) Name Value Range Interpretation Description Data Sup porting Code Source(s) Document(s ) Comment Normal (applies [facility] [Interpretation] to non-numeric (Ammir Left eye Narrative results) Martin Ophthalmometer Physician) ORGANISM Normal (applies [facility] to non-numeric (Ammir results) Martin Physician) ID Date Data Source [id number] 01/13/2017 12:00:00 AM EDT [facility] (Ammir Martin Physician) Name Value Range Interpretation Description Data Sup porting Code Source(s) Document(s ) HEPATITIS BE NONREACTIVE Normal (applies [facility] AG to non-numeric (Ammir results) Martin Physician) ID Date Data Source [id number] 01/13/2017 12:00:00 AM EDT [facility] (Ammir Martin Physician) Name Value Range Interpretation Description Data Sup porting Code Source(s) Document(s ) HEPATITIS B <3.10 Normal (applies to [facility] (A mmir SURFACE AB (NONREACT non-numeric Martin SAVANAH) results) Physician) ID Date Data Source [id number] 01/13/2017 12:00:00 AM EDT [facility] (Ammir Martin Physician) Name Value Range Interpretation Description Data Sup porting Code Source(s) Document(s ) HEPATITIS B NONREACTIVE Normal (applies [facility] CORE AB QL to non-numeric (Ammir results) Martin Physician) ID Date Data Source [id number] 01/13/2017 12:00:00 AM EDT [facility] (Ammir Martin Physician) Name Value Range Interpretation Description Data Sup porting Code Source(s) Document(s ) HEPATITIS C NONREACTIVE Normal (applies [facility] AB QL to non-numeric (Ammir results) Martin Physician) ID Date Data Source [id number] 01/13/2017 12:00:00 AM EDT [facility] (Ammir Martin Physician) Name Value Range Interpretation Code Description Data Saba rce(s) Supporting Document(s ) HBeAB NEGATIVE Normal (applies to [facility] (Amm ir non-numeric results) Martin Physician) ID Date Data Source [id number] 01/13/2017 12:00:00 AM EDT [facility] (Ammir Martin Physician) Name Value Range Interpretation Description Data Sup porting Code Source(s) Document(s ) HEPATITIS BS NONREACTIVE Normal (applies [facility] AG SCREEN to non-numeric (Ammir results) Martin Physician) ID Date Data Source [id number] 01/13/2017 12:00:00 AM EDT [facility] (Ammir Amrtin Physician) Name Value Range Interpretation Description Data Sup porting Code Source(s) Document(s ) HEPATITIS A NONREACTIVE Normal (applies [facility] AB to non-numeric (Ammir results) Martin Physician) ID Date Data Source [id number] 01/13/2017 12:00:00 AM EDT [facility] (Ammir Martin Physician) Name Value Range Interpretation Description Data Sup porting Code Source(s) Document(s ) T4 FREE, 1.19 Normal (applies to [facility] THYROXINE ng/dL non-numeric (Ammir results) Martin Physician) TSH,3RD 2.49 Normal (applies to [facility] GENERATION uIU/mL non-numeric (Ammir results) Martin Physician) ID Date Data Source [id number] 01/13/2017 12:00:00 AM EDT [facility] (Ammir Martin Physician) Name Value Range Interpretation Description Data Sup porting Code Source(s) Document(s ) WBC 9.5 Normal (applies to [facility] 10(3)/uL non-numeric (Ammir results) Martin Physician) RBC 5.4 Normal (applies to [facility] 10(6)/uL non-numeric (Ammir results) Martin Physician) Hemoglobin 15.5 g/dL Normal (applies to [facility] [Mass/volume] non-numeric (Ammir in Mixed results) Martin venous blood Physician) by Oximetry Hematocrit 45.1 % Normal (applies to [facility] [Pure volume non-numeric (Ammir fraction] of results) Martin Blood by Physician) Automated count MCV 83.5 fL Normal (applies to [facility] non-numeric (Ammir results) Martin Physician) MCH 29 pg Normal (applies to [facility] non-numeric (Ammir results) Martin Physician) PLT 264 Normal (applies to [facility] 10(3)/uL non-numeric (Ammir results) Martin Physician) MCHC 34 g/dL Normal (applies to [facility] non-numeric (Ammir results) Martin Physician) RDWSD 37.9 fL Normal (applies to [facility] non-numeric (Ammir results) Martin Physician) RDWCV 12.7 % Normal (applies to [facility] non-numeric (Ammir results) Martin Physician) NE# 5.97 Normal (applies to [facility] 10(3)/uL non-numeric (Ammir results) Martin Physician) MPV 10.0 fL Normal (applies to [facility] non-numeric (Ammir results) Martin Physician) LY# 2.37 Normal (applies to [facility] 10(3)/uL non-numeric (Ammir results) Martin Physician) MO# 0.86 Normal (applies to [facility] 10(3)/uL non-numeric (Ammir results) Martin Physician) EO# 0.23 Normal (applies to [facility] 10(3)/uL non-numeric (Ammir results) Martin Physician) IG# 0.02 Normal (applies to [facility] 10(3)/uL non-numeric (Ammir results) Martin Physician) BA# 0.09 Above high normal [facility] 10(3)/uL (Ammir Martin Physician) NE% 62.70 % Normal (applies to [facility] non-numeric (Ammir results) Martin Physician) LY% 25 % Normal (applies to [facility] non-numeric (Ammir results) Martin Physician) MO% 9.0 % Normal (applies to [facility] non-numeric (Ammir results) Martin Physician) EO% 2.4 % Normal (applies to [facility] non-numeric (Ammir results) Martin Physician) IG% 0.20 % Normal (applies to [facility] non-numeric (Ammir results) Martin Physician) BA% 0.9 % Normal (applies to [facility] non-numeric (Ammir results) Martin Physician) ID Date Data Source [id number] 01/13/2017 12:00:00 AM EDT [facility] (Ammir Martin Physician) Name Value Range Interpretation Description Data Sup porting Code Source(s) Document(s ) FOLATE SERUM 16.5 Above high normal [facility] (A mmir ng/mL Martin Physician) VITAMIN B12 897 pg/mL Normal (applies to [facility] (A mmir non-numeric Martin results) Physician) ID Date Data Source [id number] 01/13/2017 12:00:00 AM EDT [facility] (Ammir Martin Physician) Name Value Range Interpretation Description Data Sup porting Code Source(s) Document(s ) Hemoglobin A1c 5.4 % Normal (applies to [facility] (Ammir in Blood non-numeric Martin results) Physician) ID Date Data Source [id number] 01/13/2017 12:00:00 AM EDT [facility] (Ammir Martin Physician) Name Value Range Interpretation Description Data Sup porting Code Source(s) Document(s ) VITAMIN D 32.8 Normal (applies to [facility] (Amm ir 1.25 pg/mL non-numeric Martin results) Physician) ID Date Data Source [id number] 01/13/2017 12:00:00 AM EDT [facility] (Ammir Martin Physician) Name Value Range Interpretation Code Description Data Saba rce(s) Supporting Document(s ) T3 TOTAL 99 ng/dL Normal (applies to [facility] (Amm ir non-numeric Martin results) Physician) ID Date Data Source [id number] 01/13/2017 12:00:00 AM EDT [facility] (Ammir Martin Physician) Name Value Range Interpretation Code Description Data Saba rce(s) Supporting Document(s ) APTT 37.60 sec Above high normal [facility] (Ammi r Martin Physician) ID Date Data Source [id number] 01/13/2017 12:00:00 AM EDT [facility] (Ammir Martin Physician) Name Value Range Interpretation Description Data Sup porting Code Source(s) Document(s ) PROTHROMBIN 12.4 sec Normal (applies [facility] TIME, PT to non-numeric (Ammir results) Martin Physician) INR 0.89 Below low normal [facility] (Ammir Martin Physician) ID Date Data Source [id number] 01/13/2017 12:00:00 AM EDT [facility] (Ammir Martin Physician) Name Value Range Interpretation Description Data Sup porting Code Source(s) Document(s ) T4 TOTAL 9.6 ug/dL Normal (applies to [facility] (Amm ir THYROXINE non-numeric Martin results) Physician) ID Date Data Source [id number] 01/13/2017 12:00:00 AM EDT [facility] (Ammir Martin Physician) Name Value Range Interpretation Description Data Sup porting Code Source(s) Document(s ) T3 FREE 3.00 Normal (applies [facility] TRIIODOTHYRONINE pg/mL to non-numeric (Ammir results) Martin Physician) ID Date Data Source [id number] 01/13/2017 12:00:00 AM EDT [facility] (Ammir Martin Physician) Name Value Range Interpretation Description Data Sup porting Code Source(s) Document(s ) GLUCOSE UA NEGATIVE Normal (applies [facility] to non-numeric (Ammir results) Martin Physician) Ketones NEGATIVE Normal (applies [facility] [Presence] in to non-numeric (Ammir Blood by Tablet results) Martin Physician) BILIRUBIN, TOTAL NEGATIVE Normal (applies [facility] to non-numeric (Ammir results) Martin Physician) Blood [Presence] NEGATIVE Normal (applies [facility] in Urine by to non-numeric (Ammir Visual results) Martin Physician) Specific gravity 1.017 SG Normal (applies [facility] of Pericardial units to non-numeric (Ammir fluid by results) Martin Refractometry Physician) pH of Lower 5 Ph units Normal (applies [facility] respiratory to non-numeric (Ammir specimen results) Martin Physician) Protein NEGATIVE Normal (applies [facility] [Mass/volume] in to non-numeric (Ammir Lower results) Martin respiratory Physician) specimen Urobilinogen 0-2.0 Normal (applies [facility] [Presence] in to non-numeric (Ammir Urine by results) Martin Automated test Physician) strip Leukocyte NEGATIVE Normal (applies [facility] esterase to non-numeric (Ammir [Presence] in results) Martin Body fluid by Physician) Automated test strip Nitrite NEGATIVE Normal (applies [facility] [Presence] in to non-numeric (Ammir Urine by Test results) Martin strip Physician) Color of YELLOW Normal (applies [facility] Peritoneal to non-numeric (Ammir dialysis fluid results) Martin Physician) TRANSPARENCY SLIGHTLY-CL Normal (applies [facility] OUDY to non-numeric (Ammir results) Martin Physician) ID Date Data Source [id number] 02/05/2016 12:00:00 AM EDT [facility] (Ammir Martin Physician) Name Value Range Interpretation Code Description Data Saba rce(s) Supporting Document(s ) LYME IGG neg Normal (applies to [facility] (Amm ir ABS non-numeric results) Martin Physician) LYME IGM neg Normal (applies to [facility] (Amm ir ABS non-numeric results) Martin Physician) ID Date Data Source [id number] 02/05/2016 12:00:00 AM EDT [facility] (Ammir Martin Physician) Name Value Range Interpretation Code Description Data Saba rce(s) Supporting Document(s ) CRP 7.3 mg/L Above high normal [facility] (Ammi r CARDIO/NE Martin O (HS) Physician) ID Date Data Source [id number] 02/05/2016 12:00:00 AM EDT [facility] (Ammir Martin Physician) Name Value Range Interpretation Code Description Data Saba rce(s) Supporting Document(s ) ANTI-STRE 214 IU/mL Normal (applies to [facility] (Amm ir PTOLYSIN( non-numeric Martin QUANT) results) Physician) ID Date Data Source [id number] 02/05/2016 12:00:00 AM EDT [facility] (Ammir Martin Physician) Name Value Range Interpretation Description Data Sup porting Code Source(s) Document(s ) CRP QUANTITATIVE 8.4 mg/L Normal (applies [facility] to non-numeric (Ammir results) Martin Physician) ID Date Data Source [id number] 02/05/2016 12:00:00 AM EDT [facility] (Ammir Martin Physician) Name Value Range Interpretation Code Description Data Saba rce(s) Supporting Document(s ) KAYCE NEGATIVE Normal (applies to [facility] (Amm ir SCREEN,EI non-numeric Martin A results) Physician) ID Date Data Source [id number] 02/05/2016 12:00:00 AM EDT [facility] (Ammir Martin Physician) Name Value Range Interpretation Code Description Data Saba rce(s) Supporting Document(s ) URIC ACID 4.1 mg/dL Normal (applies to [facility] (Amm ir non-numeric Martin results) Physician) ID Date Data Source [id number] 02/05/2016 12:00:00 AM EDT [facility] (Ammir Martin Physician) Name Value Range Interpretation Description Data Sup porting Code Source(s) Document(s ) Rheumatoid 5.7 Normal (applies [facility] factor IU/mL to non-numeric (Ammir [Units/volume] results) Martin in Synovial Physician) fluid by Nephelometry ID Date Data Source [id number] 02/05/2016 12:00:00 AM EDT [facility] (Ammir Martin Physician) Name Value Range Interpretation Description Data Sup porting Code Source(s) Document(s ) SEDIMENTATION 25 mm/hr Above high normal [facility] RATE (Ammir Martin Physician) ID Date Data Source [id number] 02/05/2016 12:00:00 AM EDT [facility] (Ammir Martin Physician) Name Value Range Interpretation Description Data Sup porting Code Source(s) Document(s ) Comment: See Components Normal (applies to [facility] (Ammir non-numeric Martin results) Physician) ID Date Data Source [id number] 02/05/2016 12:00:00 AM EDT [facility] (Ammir Martin Physician) Name Value Range Interpretation Description Data Sup porting Code Source(s) Document(s ) WBC 9.8 Normal (applies [facility] 10^3/uL to non-numeric (Ammir results) Martin Physician) Hemoglobin 15.0 g/dL Above high normal [facility] [Mass/volume] (Ammir in Mixed venous Martin blood by Physician) Oximetry RBC 5.08 Above high normal [facility] 10^6/uL (Ammir Martin Physician) MCV 83 fL Normal (applies [facility] to non-numeric (Ammir results) Martin Physician) Hematocrit 42 % Normal (applies [facility] [Pure volume to non-numeric (Ammir fraction] of results) Martin Blood by Physician) Automated count MCHC 35.7 g/dL Above high normal [facility] (Ammir Martin Physician) MCH 29.5 pg Normal (applies [facility] to non-numeric (Ammir results) Martin Physician) PLATELET 290 Normal (applies [facility] 10^3/uL to non-numeric (Ammir results) Martin Physician) RDW 13.6 % Normal (applies [facility] to non-numeric (Ammir results) Martin Physician) MPV 8.42 fL Normal (applies [facility] to non-numeric (Ammir results) Martin Physician) SEGMENTED % 59.8 % Normal (applies [facility] to non-numeric (Ammir results) Martin Physician) SEGMENTED # 5.9 Normal (applies [facility] 10^3uL to non-numeric (Ammir results) Martin Physician) LYMPHOCYTES % 31.05 % Normal (applies [facility] to non-numeric (Ammir results) Martin Physician) MONOCYTES % 7.3 % Normal (applies [facility] to non-numeric (Ammir results) Martin Physician) LYMPHOCYTES # 3.0 Normal (applies [facility] 10^3/uL to non-numeric (Ammir results) Martin Physician) MONOCYTES # 0.7 Normal (applies [facility] 10^3/uL to non-numeric (Ammir results) Martin Physician) EOSINOPHILS # 0.14 Normal (applies [facility] 10^3/uL to non-numeric (Ammir results) Martin Physician) EOSINOPHILS % 1.39 % Normal (applies [facility] to non-numeric (Ammir results) Martin Physician) BASOPHILS % 0.48 % Normal (applies [facility] to non-numeric (Ammir results) Martin Physician) BASOPHILS # 0.05 Normal (applies [facility] 10^3/uL to non-numeric (Ammir results) Martin Physician) ID Date Data Source [id number] 02/05/2016 12:00:00 AM EDT [facility] (Ammir Martin Physician) Name Value Range Interpretation Description Data Sup porting Code Source(s) Document(s ) Cholesterol 194 Normal (applies [facility] [Moles/volume] mg/dL to non-numeric (Ammir in Pericardial results) Martin fluid Physician) TRIGLYCERIDES 261 Above high normal [facility] mg/dL (Ammir Martin Physician) HDL CHOLESTEROL 45 mg/dL Normal (applies [facility] to non-numeric (Ammir results) Martin Physician) LDL/HDL RATIO 2.16 Normal (applies [facility] to non-numeric (Ammir results) Martin Physician) Cholesterol in 97 mg/dL Normal (applies [facility] LDL to non-numeric (Ammir [Mass/volume] in results) Martin Serum or Plasma Physician) by Direct assay Cholesterol in 52 mg/dL Above high normal [facility] LDL (Ammir [Mass/volume] in Martin Serum or Plasma Physician) by Direct assay CHOLESTEROL/HDL 4.31 Normal (applies [facility] RATIO to non-numeric (Ammir results) Martin Physician) NON-HDL 149 Normal (applies [facility] CHOLESTEROL mg/dL to non-numeric (Ammir results) Martin Physician) ID Date Data Source [id number] 02/05/2016 12:00:00 AM EDT [facility] (Ammir Martin Physician) Name Value Range Interpretation Description Data Sup porting Code Source(s) Document(s ) Sodium 137 Normal (applies [facility] [Moles/volume] mmol/L to non-numeric (Ammir in Serum, Plasma results) Martin or Blood Physician) Chloride 102 Normal (applies [facility] [Moles/volume] mmol/L to non-numeric (Ammir in Serum, Plasma results) Martin or Blood Physician) Potassium 3.7 Normal (applies [facility] [Mass/volume] in mmol/L to non-numeric (Ammir Blood results) Martin Physician) Glucose 99 mg/dL Normal (applies [facility] [Mass/volume] in to non-numeric (Ammir Urine collected results) Martin for unspecified Physician) duration Carbon dioxide 22.0 Normal (applies [facility] [VFr/PPres] in mEq/L to non-numeric (Ammir Gas delivery results) Martin system Physician) CREATININE SERUM 0.86 Normal (applies [facility] mg/dL to non-numeric (Ammir results) Martin Physician) BUN 15 mg/dl Normal (applies [facility] to non-numeric (Ammir results) Martin Physician) BILIRUBIN,Total 0.4 Normal (applies [facility] mg/dl to non-numeric (Ammir results) Martin Physician) BUN/CREATININE 17 Ratio Normal (applies [facility] RATIO to non-numeric (Ammir results) Martin Physician) PROTEIN TOTAL 7.2 g/dL Normal (applies [facility] to non-numeric (Ammir results) Martin Physician) Calcium 9.4 Normal (applies [facility] [Moles/volume] mg/dL to non-numeric (Ammir in Urine results) Martin collected for Physician) unspecified duration Microalbumin 4.4 g/dL Normal (applies [facility] [Mass/time] in to non-numeric (Ammir Urine collected results) Martin for unspecified Physician) duration ALK.PHOSPHATASE 87 U/L Normal (applies [facility] to non-numeric (Ammir results) Martin Physician) ALT (SGPT) 11 U/L Normal (applies [facility] to non-numeric (Ammir results) Martin Physician) Globulin 2.8 g/dL Normal (applies [facility] [Mass/time] in to non-numeric (Ammir 24 hour Urine results) Martin Physician) AST (SGOT) 13 U/L Normal (applies [facility] to non-numeric (Ammir results) Martin Physician) GLOMERULAR FILT. 75 Normal (applies [facility] RATE mL/min to non-numeric (Ammir results) Martin Physician) A/G RATIO 1.6 Normal (applies [facility] Ratio to non-numeric (Ammir results) Martin Physician) Procedure Social History Code Duration Value Status Description Data Source(s ) Smoking 01/03/2020 denies drinking completed denies drinking [facility] EN (St 12:00:00 AM EDT denies drugs denies drugs Smoke r [facility]) Smoking 01/03/2020 Unknown if ever completed Unknown if ever [facility] EN (St 12:00:00 AM EDT smoked smoked [facility]) Smoking 12/20/2019 - Cigarettes: 1 completed - Cigarettes: 1 ppd [facility] (Ammir 12:00:00 AM EDT ppd Martin Physician) Smoking 12/20/2019 Unknown if ever completed Unknown if ever [facility] EN (Ammir 12:00:00 AM EDT smoked smoked Martin Physician) Smoking Unknown if ever completed Unknown if ever Cadence emilia Manzano [facility] Vital Signs ID Date Data Source [id number] Name Value Range Interpretation Code Description Data Source(s) Heart rate 85 /min 85 /min [facility] (Ammir Martin Physician) Body temperature 98.7 F 98.7 F [facility] ( Ammir Martin Physician) Inhaled oxygen 98 % 98 % [facility] (Am jeri concentration Martin Physician) Body mass index 71.2 kg/m2 71.2 kg/m2 [facility] (A mmir (BMI) [Ratio] Martin Physician) Diastolic blood 72 mm[Hg] 72 mm[Hg] [facility] (A mmir pressure Martin Physician) Systolic blood 108 mm[Hg] 108 mm[Hg] [facility] (Am jeri pressure Martin Physician) Body weight 440.92 lb 440.92 lb [facility] (Ammir Martin Physician) Body height 66 in 66 in [facility] (Ammir Martin Physician) Heart rate 100 /min 100 /min [facility] (Ammir Martin Physician) Body temperature 98.7 F 98.7 F [facility] ( Ammir Martin Physician) Inhaled oxygen 98 % 98 % [facility] (Am jeri concentration Martin Physician) Diastolic blood 64 mm[Hg] 64 mm[Hg] [facility] (A mmir pressure Martin Physician) Systolic blood 98 mm[Hg] 98 mm[Hg] [facility] (Am jeri pressure Martin Physician) Heart rate 115 /min 115 /min [facility] (Ammir Martin Physician) Inhaled oxygen 98 % 98 % [facility] (Am jeri concentration Martin Physician) Body mass index 32.9 kg/m2 32.9 kg/m2 [facility] (A mmir (BMI) [Ratio] Martin Physician) Diastolic blood 72 mm[Hg] 72 mm[Hg] [facility] (A mmir pressure Martin Physician) Systolic blood 112 mm[Hg] 112 mm[Hg] [facility] (Am jeri pressure Martin Physician) Body weight 204 lb 204 lb [facility] (Ammir Martin Physician) Body height 66 in 66 in [facility] (Ammir Martin Physician) Heart rate 90 /min 90 /min [facility] (Ammir Martin Physician) Inhaled oxygen 98 % 98 % [facility] (Am jeri concentration Martin Physician) Body mass index 33.1 kg/m2 33.1 kg/m2 [facility] (A mmir (BMI) [Ratio] Martin Physician) Diastolic blood 76 mm[Hg] 76 mm[Hg] [facility] (A mmir pressure Martin Physician) Systolic blood 124 mm[Hg] 124 mm[Hg] [facility] (Am jeri pressure Martin Physician) Body weight 205 lb 205 lb [facility] (Ammir Martin Physician) Body height 66 in 66 in [facility] (Ammir Martin Physician) Heart rate 105 /min 105 /min [facility] (Ammir Martin Physician) Inhaled oxygen 98 % 98 % [facility] (Am jeri concentration Martin Physician) Diastolic blood 62 mm[Hg] 62 mm[Hg] [facility] (A mmir pressure Martin Physician) Systolic blood 95 mm[Hg] 95 mm[Hg] [facility] (Am jeri pressure Martin Physician) Heart rate 121 /min 121 /min [facility] (Ammir Martin Physician) Respiratory rate 18 /min 18 /min [facility] ( Ammir Martin Physician) Inhaled oxygen 96 % 96 % [facility] (Am jeri concentration Martin Physician) Body mass index 32.6 kg/m2 32.6 kg/m2 [facility] (A mmir (BMI) [Ratio] Martin Physician) Diastolic blood 88 mm[Hg] 88 mm[Hg] [facility] (A mmir pressure Martin Physician) Systolic blood 140 mm[Hg] 140 mm[Hg] [facility] (Am jeri pressure Martin Physician) Body weight 202 lb 202 lb [facility] (Ammir Martin Physician) Body height 66 in 66 in [facility] (Ammir Martin Physician) Heart rate 121 /min 121 /min [facility] (Ammir Martin Physician) Respiratory rate 18 /min 18 /min [facility] ( Ammir Martin Physician) Inhaled oxygen 96 % 96 % [facility] (Am jeri concentration Martin Physician) Body mass index 32.6 kg/m2 32.6 kg/m2 [facility] (A mmir (BMI) [Ratio] Martin Physician) Diastolic blood 78 mm[Hg] 78 mm[Hg] [facility] (A mmir pressure Martin Physician) Systolic blood 116 mm[Hg] 116 mm[Hg] [facility] (Am jeri pressure Martin Physician) Body weight 202 lb 202 lb [facility] (Ammir Martin Physician) Body height 66 in 66 in [facility] (Ammir Martin Physician) Heart rate 110 /min 110 /min [facility] (Ammir Martin Physician) Respiratory rate 18 /min 18 /min [facility] ( Ammir Martin Physician) Inhaled oxygen 98 % 98 % [facility] (Am jeri concentration Martin Physician) Diastolic blood 84 mm[Hg] 84 mm[Hg] [facility] (A mmir pressure Martin Physician) Systolic blood 120 mm[Hg] 120 mm[Hg] [facility] (Am jeri pressure Martin Physician) Heart rate 102 /min 102 /min [facility] (Ammir Martin Physician) Inhaled oxygen 98 % 98 % [facility] (Am jeri concentration Martin Physician) Diastolic blood 60 mm[Hg] 60 mm[Hg] [facility] (A mmir pressure Martin Physician) Systolic blood 100 mm[Hg] 100 mm[Hg] [facility] (Am jeri pressure Martin Physician) Heart rate 109 /min 109 /min [facility] (Ammir Martin Physician) Inhaled oxygen 97 % 97 % [facility] (Am jeri concentration Martin Physician) Diastolic blood 80 mm[Hg] 80 mm[Hg] [facility] (A mmir pressure Martin Physician) Systolic blood 130 mm[Hg] 130 mm[Hg] [facility] (Am jeri pressure Martin Physician) Heart rate 108 /min 108 /min [facility] (Ammir Martin Physician) Inhaled oxygen 98 % 98 % [facility] (Am jeri concentration Martin Physician) Diastolic blood 80 mm[Hg] 80 mm[Hg] [facility] (A mmir pressure Martin Physician) Systolic blood 130 mm[Hg] 130 mm[Hg] [facility] (Am jeri pressure Martin Physician) Heart rate 114 /min 114 /min [facility] (Ammir Martin Physician) Body temperature 98.8 F 98.8 F [facility] ( Ammir Martin Physician) Inhaled oxygen 97 % 97 % [facility] (Am jeri concentration Martin Physician) Body mass index 34.7 kg/m2 34.7 kg/m2 [facility] (A mmir (BMI) [Ratio] Martin Physician) Diastolic blood 72 mm[Hg] 72 mm[Hg] [facility] (A mmir pressure Martin Physician) Systolic blood 98 mm[Hg] 98 mm[Hg] [facility] (Am jeri pressure Martin Physician) Body weight 202 lb 202 lb [facility] (Ammir Martin Physician) Body height 64 in 64 in [facility] (Ammir Martin Physician) Heart rate 114 /min 114 /min [facility] (Ammir Martin Physician) Body temperature 98.8 F 98.8 F [facility] ( Ammir Martin Physician) Inhaled oxygen 97 % 97 % [facility] (Am jeri concentration Martin Physician) Body mass index 34.7 kg/m2 34.7 kg/m2 [facility] (A mmir (BMI) [Ratio] Martin Physician) Diastolic blood 72 mm[Hg] 72 mm[Hg] [facility] (A mmir pressure Martin Physician) Systolic blood 98 mm[Hg] 98 mm[Hg] [facility] (Am jeri pressure Martin Physician) Body weight 202 lb 202 lb [facility] (Ammir Martin Physician) Body height 64 in 64 in [facility] (Ammir Martin Physician) Heart rate 70 /min 70 /min [facility] (Ammir Martin Physician) Inhaled oxygen 97 % 97 % [facility] (Am jeri concentration Martin Physician) Body mass index 31.1 kg/m2 31.1 kg/m2 [facility] (A mmir (BMI) [Ratio] Martin Physician) Diastolic blood 70 mm[Hg] 70 mm[Hg] [facility] (A mmir pressure Martin Physician) Systolic blood 120 mm[Hg] 120 mm[Hg] [facility] (Am jeri pressure Martin Physician) Body weight 181 lb 181 lb [facility] (Ammir Martin Physician) Body height 64 in 64 in [facility] (Ammir Martin Physician)
[2020-01-13] MEDS ORDERED: LIDOCAINE HCL 1%, 10 MG/ML (20ML VIAL) ONE (10:30)
[2020-01-13] MEDS ORDERED: BUPIVACAINE HCL/PF 0.75% 10 ML VIAL ONE (10:30)
[2020-01-13] MEDS ORDERED: LIDOCAINE HCL/PF 1% SDV 5ML VIAL ONE (11:11)
--- NOTE | 2020-01-13 11:28 | PROC ---
Procedure Note Procedure: Pre procedure Diagnosis: Sacroilliac joint dysfunction Post Procedure Diagnosis: same Anesthesia: local Procedure Performed: Left SIJ L5 medial branch and S1 S2 S3 Lateral Branch radiofrequency ablation under fluorscopic guidance. The patient was sterilely prepped and draped in the usual fashion while in the prone position. 1% Lidocaine was used to provide soft tissue anesthesia. Time out was performed. Under fluoroscopic guidance, 10mm active tip radiofrequency probes were successfully directed over the RIGHT L5 dorsal rami at the intersection of the transverse processes and superior articular processes. Under fluoroscopic guidance, 10mm active tip radiofrequency probes were successfully directed over the Left S1 S2 S3 Lateral Branches. Needle tip positions were confirmed with both sensory and motor stimulation,both of which resulted in appropriate responses in the lumbar and sacral region, and no reponse in the lower extremities. Lesions were performed at each site at a temperature of 90 degrees Celsius for duration of 90 seconds. Prior to each lesion, 1mL of a cocktail of 4mL of 2% lidocaine and 1mL Omnipaque 180 was injected at each site. Following each lesion, 0.5mL of solution containing 1mL dexamethasone and 2mL of .75% bupivacaine, was injected at each site. The patient tolerated the procedure well and there were no complications. The patient was taken to the post procedure recovery areain good condition. Vital signs remained stable before, during, and after the procedure. The patient was given oral and written follow-up instructions. The patient was given a follow up appointment with me in the near future. Mihai MCCRARY
[2020-01-13] MEDS ORDERED: DEXAMETHASONE SOD PHOSPHATE/PF 10 MG/ML SDV ONE (11:36)
[2020-01-13] MEDS ORDERED: LIDOCAINE HCL 2% (20ML MULTI-DOSE VIAL) ONE (11:36)
[2020-01-13] MEDS ORDERED: BUPIVACAINE HCL/PF 0.75% 10 ML VIAL PNB ONE (11:40)
[2020-01-13] MEDS ORDERED: IOHEXOL 180 MG/1 ML ML IJ ONE (11:40)
[2020-01-13] MEDS ORDERED: LIDOCAINE HCL 1%, 10 MG/ML (20ML VIAL) PNB ONE (11:40)
[2020-01-13] MEDS ORDERED: LIDOCAINE HCL 2% (50ML VIAL) PNB ONE (11:40)
[2020-01-13 12:39] VITALS: TEMP 97.8
[2020-01-13 12:55] VITALS: BP 121/70; PULSE 80
== END 2020-01-13 12:47 | disposition home or self-care (01) ==
LOC: JASU-SURG 04:57
PROVIDERS: ATTEND Pain Medicine Pain Medicine
PROC: 3E0U33Z Introduction of Anti-inflammatory into Joints, Percutaneous Approach (ICD-10-PCS; 2020-01-13)
PROC: 3E0U3BZ Introduction of Anesthetic Agent into Joints, Percutaneous Approach (ICD-10-PCS; 2020-01-13)
PROC: 015R3ZZ Destruction of Sacral Nerve, Percutaneous Approach (ICD-10-PCS; principal; 2020-01-13 11:00)
DX: M53.3 Sacrococcygeal disorders, not elsewhere classified (principal); M54.5 Low back pain
CPT/HCPCS: 64625; G0260; 76000-TC-FY

== ENCOUNTER 2020-02-03 04:44 | Day surgery (SDC) | payer OTHER ==
--- OUTSIDE RECORDS SUMMARY | 2020-01-19 16:11 | XMS ---
:1970 Author Organization [facility] Care Team Providers Name Role Phone [facility] Unavailable Unavailable Erosa Unavailable Erosa Unavailable Essence BROWN Unavailable Unavailable Martin Unavailable [phone] Martin Unavailable [phone] Martin Unavailable [phone] Martin Unavailable [phone] Martin Unavailable [phone] Martin Unavailable [phone] Martni Unavailable [phone] Martin Unavailable [phone] Martin Unavailable [...] is protected by Article 27-F of the [facility] Public Health law. If you continue you may haveaccess to information: Regarding HIV / AIDS; Provided by facilities licensed or operated by the [facility] Office of Mental Health; or Provided by the [facility] Office for People With Developmental Disabilities. If such information is present, then the following [facility] mandated warning applies: This information has [...] law may result in a fine or fpc sentence or both. A general authorization for the release of medical or other information is NOT sufficient authorization for further disclosure. Allergies and Adverse Reactions Type Description Substance Reaction Status Data Source(s ) Drug allergy SULFA [id number] Active [facility] (Am jeri Salazar Physician) Encounters Encounter Providers Location Date Indications Data Source(s ) Attender: Mihai 01/03/2020 [facility] ([facility] Erosa 12:00:00 AM ED Medical, ) Office Attender: Mihai Alfaro 01/03/2020 12:00:00 AM EDT [facility] ([facility], ) Office Attender: Yecenia Salazar 12/20/2019 12:00:00 [...] DT [facility] (Ammir Martin Physician) Office Attender: Ammir Martin 12/20/2019 12:00:00 AM E DT [facility] (Ammir Martin Physician) Office Outpatient Attender: [id number] 12/15/2019 02:36:00 [facility] STEPHANIE, PM EDT [facility] RAdmitter: [id number] Anne lombardo STEPHANIE, R Outpatient Attender: [id number] [facility] 06/14/2019 12:15:52 [facility] ) Patient admitted. Immunizations Vaccine Date Status [...] Brand Start Product Dose Route Administrative Pharmacy [facility] Indications Reaction Description Data Name Date Form Instructions Instructions Source(s) Cholecalcif VITAMI 12/19/ TABLET 90 complet TONIO MIN D3 [facility] jacob 1000 N 2019 ed (Ammir UNT Oral D3:199 12:00: Martin Tablet 362 00 AM Physician) VITAMIN EDT [id number] Amitriptyli AMITRI 12/19/ TABLET 30 complet WANDER RIPTYLIN MED[facility] ne PTYLIN 2019 ed E (Ammir Hydrochlori E:8568 12:00: Raba di de 25 MG 34 00 AM Physician) Oral Tablet EDT AMITRIPTYLI NE:953946 Clonazepam CLONAZ 12/06/ TABLET 60 complet CLONA ZEPAM [facility] 1 MG Oral EPAM:1 2019 ed (Ammir Tablet 90695 12:00: Martin CLONAZEPAM: 00 AM Physici an) [id number] EDT Escitalopra LEXAPR 10/02/ TABLET 30 complet [...] 08/01/ TABLET 60 complet BUSPAR [facility] hydrochlori :76025 2019 ed (Ammir de 10 MG 3 12:00: Martin Oral Tablet 00 AM Physici an) BUSPAR:8660 EDT 83 Fenofibrate FENOFI 08/01/ TABLET 30 complet FENO FIBRATE [facility] 54 MG Oral BRATE: 2019 ed (Ammir Tablet 408199 12:00: Martin FENOFIBRATE 00 AM Physici an) :141298 EDT Methadone METHAD 01/24/ TABLET 90 complet METHAD ONE [facility] Hydrochlori ONE:86 2018 ed (Ammir de 5 MG 4718 12:00: Martin Oral Tablet 00 AM Physici an) METHADONE:8 EDT 08747 PREVIDENT: 09/14/ complet PREVIDENT MED[facility] 2019 ed (Ammir 12:00: Martin 00 AM Physician) EDT CLOBETASOL 09/14/ complet CLOBETASO L [facility] PROPIONATE 2019 ed PROPIONATE E ( Ammir E EXTERNAL 12:00: EXTERNAL Rab lisa CREAM: 00 AM CREAM Physician) EDT Nitroglycer NITROG 04/12/ TABLET 10 complet NITR OGLYCERI [facility] in 0.4 MG LYCERI 2018 ed N (Ammir Sublingual N:1979 12:00: Rabad i Tablet 39 00 AM Physician) NITROGLYCER EST IN:[id number] Insurance Providers Payer name Policy type Policy ID Covered Covered libertarian's Policy P elizabeth / Coverage libertarian ID relationship to [employer] Inf ormation type [place] MEDICAID [id number] SP [id number] MEDICARE [id number] SP [id number] 65 5 MEDICAID OF [id number] [place] [id number] 1 [id number] PART B [place] MED[place]ID [id number] SP [id number] MEDICAID [id number] SP [id number] MEDICARE [id number] SP [id number] 65 5 Problems, Conditions, and Diagnoses Code Display Name Description Problem Type Effective Data Sour ce(s) Dates M53.3 Sacrococcygeal SACROCOCCYGEAL Problem 01/03/[address] [facility] [address] disorders, not DISORDERS, NOT 12:00:00 AM Doron' s elsewhere classified ELSEWHERE CLASSIFIED EDT Medical, PC) 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 [address] [facility] ([address] osteoarthritis, left OSTEOARTHRITIS, LEFT 12:00 :00 AM Doron's knee KNEE EDT Medical, PC) E78.5 Hyperlipidemia, HYPERLIPIDEMIA, Problem 12/20/2019 [facility] EN [...] Encounter for other ENCOUNTER FOR OTHER Problem 018 [facility] (Ammir administrative ADMINISTRATIVE 12:00:00 AM [...] Physician) L40.52 Psoriatic arthritis PSORIATIC ARTHRITIS Problem 017 [facility] (Ammir mutilans MUTILANS 12:00:00 AM [...] M26.69 Other specified OTHER SPECIFIED Diagnosis 12/15/2019 Ailey disorders of DISORDERS OF 02:36:00 PM [facility] temporomandibular TEMPOROMANDIBULAR EDT Care joint [employer] Surgeries/Procedures Procedure Description Date Indications Data Source(s) Documentation of current 01/03/2020 MED [facility] ([facility] (procedure) 12:00:00 AM EDT [facility]) OFFICE OUTPATIENT VISIT 25 01/03/2020 Radha [...] EDT P hysician) Medication Reconciliation 08/26/2018 ME DGEN (Ammir Martin (procedure) 12:00:00 AM EDT Physician) [...] P hysician) Results ID Date Data Source [id number] 01/08/2020 10:38:00 AM EDT [facility] Name Value Range Interpretation Description Data Sup porting Code Source(s) Document(s ) SARS [facility] coronavirus 2 RNA This lab was ordered by [facility] and reported by [facility]. ID Date Data Source [id number] 07/02/2017 12:00:00 AM EST [facility] (Ammir Martin [...] (Ammir Martin Physician) ID Date Data Source [id number] 07/02/2017 12:00:00 AM EST [facility] (Ammir Martin [...] (applies [facility] mg/dL to non-numeric (Ammir results) Matrin Physician) TOTAL PROTEIN 7.0 g/dL Normal (applies [...] NON AFR 81 Above high normal [facility] EQUATORIAL GUINEAN mL/min/1 (Ammir .73m2 Martin Physician) EGFR AFR 98 Above high normal [facility] EQUATORIAL GUINEAN mL/min/1 (Ammir .73m2 Martin Physician) ID Date Data Source [id number] 07/02/2017 12:00:00 AM EST [facility] (Ammir Martin [...] Normal (applies to [facility] non-numeric (Ammir results) Amrtin Physician) NE% 58.50 % Normal (applies to [...] results) Martin Physician) ID Date Data Source [id number] 07/02/2017 12:00:00 AM EST [facility] (Ammir Martin Physician) Name Value Range Interpretation Description Data Sup porting Code Source(s) Document(s ) T4 FREE, 0.96 Normal (applies to [facility] THYROXINE ng/dL non-numeric (Ammir results) Martin Physician) TSH,3RD 2.40 Normal (applies to [facility] GENERATION uIU/mL non-numeric (Ammir results) Martin Physician) ID Date Data Source [id number] 07/02/2017 12:00:00 AM EST [facility] (Ammir Martin [...] Martin results) Physician) ID Date Data Source [id number] 01/13/2017 12:00:00 AM EDT [facility] (Ammir Martin [...] (Ammir Martin Physician) ID Date Data Source [id number] 01/13/2017 12:00:00 AM EDT [facility] (Ammir Martin [...] EGFR AFR 115 Above high normal [facility] EQUATORIAL GUINEAN mL/min/1 (Ammir .73m2 Martin Physician) EGFR NON AFR 95 Above high normal [facility] EQUATORIAL GUINEAN mL/min/1 (Ammir .73m2 Martin Physician) ID Date Data Source [id number] 01/13/2017 12:00:00 AM EDT [facility] (Ammir Martin Physician) Name Value Range Interpretation Description Data Sup porting Code Source(s) Document(s ) Comment Normal (applies [facility] [Interpretation] to non-numeric (Ammir Left eye Narrative results) Martin Ophthalmometer Physician) ORGANISM Normal (applies [facility] to non-numeric (Ammir results) Martin Physician) ID Date Data Source [id number] 01/13/2017 12:00:00 AM EDT [facility] (Ammir Martin Physician) Name Value Range Interpretation Description Data Sup porting Code Source(s) Document(s ) HEPATITIS BE NONREACTIVE Normal (applies [facility] AG to non-numeric (Ammir results) Martin Physician) ID Date Data Source [id number] 01/13/2017 12:00:00 AM EDT [facility] (Ammir Martin Physician) Name Value Range Interpretation Description Data Sup porting Code Source(s) Document(s ) HEPATITIS B <3.10 Normal (applies to [facility] (A mmir SURFACE AB (NONREACT non-numeric Martin SAVANAH) results) Physician) ID Date Data Source [id number] 01/13/2017 12:00:00 AM EDT [facility] (Ammir Martin Physician) Name Value Range Interpretation Description Data Sup porting Code Source(s) Document(s ) HEPATITIS B NONREACTIVE Normal (applies [facility] CORE AB QL to non-numeric (Ammir results) Martin Physician) ID Date Data Source [id number] 01/13/2017 12:00:00 AM EDT [facility] (Ammir Martin Physician) Name Value Range Interpretation Description Data Sup porting Code Source(s) Document(s ) HEPATITIS C NONREACTIVE Normal (applies [facility] AB QL to non-numeric (Ammir results) Martin Physician) ID Date Data Source [id number] 01/13/2017 12:00:00 AM EDT [facility] (Ammir Martin Physician) Name Value Range Interpretation Code Description Data Saba rce(s) Supporting Document(s ) HBeAB NEGATIVE Normal (applies to [facility] (Amm ir non-numeric results) Martin Physician) ID Date Data Source [id number] 01/13/2017 12:00:00 AM EDT [facility] (Ammir Martin Physician) Name Value Range Interpretation Description Data Sup porting Code Source(s) Document(s ) HEPATITIS BS NONREACTIVE Normal (applies [facility] AG SCREEN to non-numeric (Ammir results) Martin Physician) ID Date Data Source [id number] 01/13/2017 12:00:00 AM EDT [facility] (Ammir Martin Physician) Name Value Range Interpretation Description Data Sup porting Code Source(s) Document(s ) HEPATITIS A NONREACTIVE Normal (applies [facility] AB to non-numeric (Ammir results) Martin Physician) ID Date Data Source [id number] 01/13/2017 12:00:00 AM EDT [facility] (Ammir Martin Physician) Name Value Range Interpretation Description Data Sup porting Code Source(s) Document(s ) T4 FREE, 1.19 Normal (applies to [facility] THYROXINE ng/dL non-numeric (Ammir results) Martin Physician) TSH,3RD 2.49 Normal (applies to [facility] GENERATION uIU/mL non-numeric (Ammir results) Martin Physician) ID Date Data Source [id number] 01/13/2017 12:00:00 AM EDT [facility] (Ammir Martin [...] results) Martin Physician) ID Date Data Source [id number] 01/13/2017 12:00:00 AM EDT [facility] (Ammir Martin Physician) Name Value Range Interpretation Description Data Sup porting Code Source(s) Document(s ) FOLATE SERUM 16.5 Above high normal [facility] (A mmir ng/mL Martin Physician) VITAMIN B12 897 pg/mL Normal (applies to [facility] (A mmir non-numeric Martin results) Physician) ID Date Data Source [id number] 01/13/2017 12:00:00 AM EDT [facility] (Ammir Martin Physician) Name Value Range Interpretation Description Data Sup porting Code Source(s) Document(s ) Hemoglobin A1c 5.4 % Normal (applies to [facility] (Ammir in Blood non-numeric Martin results) Physician) ID Date Data Source [id number] 01/13/2017 12:00:00 AM EDT [facility] (Ammir Martin Physician) Name Value Range Interpretation Description Data Sup porting Code Source(s) Document(s ) VITAMIN D 32.8 Normal (applies to [facility] (Amm ir 1.25 pg/mL non-numeric Martin results) Physician) ID Date Data Source [id number] 01/13/2017 12:00:00 AM EDT [facility] (Ammir Martin Physician) Name Value Range Interpretation Code Description Data Saba rce(s) Supporting Document(s ) T3 TOTAL 99 ng/dL Normal (applies to [facility] (Amm ir non-numeric Martin results) Physician) ID Date Data Source [id number] 01/13/2017 12:00:00 AM EDT [facility] (Ammir Martin Physician) Name Value Range Interpretation Code Description Data Saba rce(s) Supporting Document(s ) APTT 37.60 sec Above high normal [facility] (Ammi r Martin Physician) ID Date Data Source [id number] 01/13/2017 12:00:00 AM EDT [facility] (Ammir Martin Physician) Name Value Range Interpretation Description Data Sup porting Code Source(s) Document(s ) PROTHROMBIN 12.4 sec Normal (applies [facility] TIME, PT to non-numeric (Ammir results) Martin Physician) INR 0.89 Below low normal [facility] (Ammir Martin Physician) ID Date Data Source [id number] 01/13/2017 12:00:00 AM EDT [facility] (Ammir Martin Physician) Name Value Range Interpretation Description Data Sup porting Code Source(s) Document(s ) T4 TOTAL 9.6 ug/dL Normal (applies to [facility] (Amm ir THYROXINE non-numeric Martin results) Physician) ID Date Data Source [id number] 01/13/2017 12:00:00 AM EDT [facility] (Ammir Martin Physician) Name Value Range Interpretation Description Data Sup porting Code Source(s) Document(s ) T3 FREE 3.00 Normal (applies [facility] TRIIODOTHYRONINE pg/mL to non-numeric (Ammir results) Martin Physician) ID Date Data Source [id number] 01/13/2017 12:00:00 AM EDT [facility] (Ammir Martin [...] results) Martin Physician) ID Date Data Source [id number] 02/05/2016 12:00:00 AM EDT [facility] (Ammir Martin Physician) Name Value Range Interpretation Code Description Data Saba rce(s) Supporting Document(s ) LYME IGG neg Normal (applies to [facility] (Amm ir ABS non-numeric results) Martin Physician) LYME IGM neg Normal (applies to [facility] (Amm ir ABS non-numeric results) Martin Physician) ID Date Data Source [id number] 02/05/2016 12:00:00 AM EDT [facility] (Ammir Martin Physician) Name Value Range Interpretation Code Description Data Saba rce(s) Supporting Document(s ) CRP 7.3 mg/L Above high normal [facility] (Ammi r CARDIO/NE Martin O (HS) Physician) ID Date Data Source [id number] 02/05/2016 12:00:00 AM EDT [facility] (Ammir Martin Physician) Name Value Range Interpretation Code Description Data Saba rce(s) Supporting Document(s ) ANTI-STRE 214 IU/mL Normal (applies to [facility] (Amm ir PTOLYSIN( non-numeric Martin QUANT) results) Physician) ID Date Data Source [id number] 02/05/2016 12:00:00 AM EDT [facility] (Ammir Martin Physician) Name Value Range Interpretation Description Data Sup porting Code Source(s) Document(s ) CRP QUANTITATIVE 8.4 mg/L Normal (applies [facility] to non-numeric (Ammir results) Martin Physician) ID Date Data Source [id number] 02/05/2016 12:00:00 AM EDT [facility] (Ammir Martin Physician) Name Value Range Interpretation Code Description Data Saba rce(s) Supporting Document(s ) KAYCE NEGATIVE Normal (applies to [facility] (Amm ir SCREEN,EI non-numeric Martin A results) Physician) ID Date Data Source [id number] 02/05/2016 12:00:00 AM EDT [facility] (Ammir Martin Physician) Name Value Range Interpretation Code Description Data Saba rce(s) Supporting Document(s ) URIC ACID 4.1 mg/dL Normal (applies to [facility] (Amm ir non-numeric Martin results) Physician) ID Date Data Source [id number] 02/05/2016 12:00:00 AM EDT [facility] (Ammir Martin Physician) Name Value Range Interpretation Description Data Sup porting Code Source(s) Document(s ) Rheumatoid 5.7 Normal (applies [facility] factor IU/mL to non-numeric (Ammir [Units/volume] results) Martin in Synovial Physician) fluid by Nephelometry ID Date Data Source [id number] 02/05/2016 12:00:00 AM EDT [facility] (Ammir Martin Physician) Name Value Range Interpretation Description Data Sup porting Code Source(s) Document(s ) SEDIMENTATION 25 mm/hr Above high normal [facility] RATE (Ammir Martin Physician) ID Date Data Source [id number] 02/05/2016 12:00:00 AM EDT [facility] (Ammir Martin Physician) Name Value Range Interpretation Description Data Sup porting Code Source(s) Document(s ) Comment: See Components Normal (applies to [facility] (Ammir non-numeric Martin results) Physician) ID Date Data Source [id number] 02/05/2016 12:00:00 AM EDT [facility] (Ammir Martin [...] results) Martin Physician) ID Date Data Source [id number] 02/05/2016 12:00:00 AM EDT [facility] (Ammir Martin [...] results) Martin Physician) ID Date Data Source [id number] 02/05/2016 12:00:00 AM EDT [facility] (Ammir Martin [...] EDT denies drugs denies drugs [place] [facility] Smoking 01/03/2020 Unknown if ever completed Unknown if ever MED[facility] EN (St 12:00:00 AM EDT smoked smoked [facility]) Smoking 12/20/2019 - Cigarettes: 1 [...] Physician) Diastolic blood 72 mm[Hg] 72 mm[Hg] [facility] (A mmir pressure Martin Physician) Systolic blood 98 mm[Hg] 98 mm[Hg] [facility] (Am jeri pressure Martin Physician) Body weight 202 lb 202 lb [facility] (Ammir Martin Physician) Body height 64 in 64 in [facility] (Ammir Martin Physician) Heart rate 70 /min 70 /min [facility] (Ammir Martin Physician) Inhaled oxygen 97 % 97 % [facility] (Am jeri concentration Martin Physician) Body mass index 31.1 kg/m2 31.1 kg/m2 [facility] (A mmir (BMI) [Ratio] Martin Physician) Diastolic blood 70 mm[Hg] 70 mm[Hg] [facility] (A mmir pressure Martin Physician) Systolic blood 120 mm[Hg] 120 mm[Hg] [facility] (Am jeri pressure Martin Physician) Body weight 181 lb 181 lb [facility] (Ammir Martin Physician) Body height 64 in 64 in [facility] (Ammir Martin Physician)
[2020-02-02 15:28] VITALS: BMI 29.8
--- NOTE | 2020-02-02 23:12 | PROC ---
Procedure Note Procedure: Pre procedure Diagnosis: Sacroiliac joint dysfunction Post Procedure Diagnosis: same Anesthesia: local Procedure Performed: Right SIJ L5 medial branch and S1 S2 S3 lateral branch radiofrequency ablation under fluoroscopic guidance. The patient was sterilely prepped and draped in the usual fashion while in the prone position. 1% Lidocaine was used to provide soft tissue anesthesia. Time out was performed. Under fluoroscopic guidance, 10mm active tip radiofrequency probes were successfully directed over the RIGHT L5 dorsal rami at the intersection of the transverse processes and superior articular processes. Under fluoroscopic guidance, 10mm active tip radiofrequency probes were successfully directed over the right S1 S2 S3 Lateral Branches. Needle tip positions were confirmed with both sensory and motor stimulation,both of which resulted in appropriate responses in the lumbar and sacral region, and no reponse in the lower extremities. Lesions were performed at each site at a temperature of 90 degrees Celsius for duration of 90 seconds. Prior to each lesion, 1mL of a cocktail of 4mL of 2% lidocaine and 1mL Omnipaque 180 was injected at each site. Following each lesion, 0.5mL of solution containing 1mL dexamethasone and 2mL of .75% bupivacaine, was injected at each site. The patient tolerated the procedure well and there were no complications. The patient was taken to the post procedure recovery areain good condition. Vital signs remained stable before, during, and after the procedure. The patient was given oral and written follow-up instructions. The patient was given a follow up appointment with me in the near future. Mihai MCCRARY
--- OUTSIDE RECORDS SUMMARY | 2020-02-03 04:48 | XMS ---
:1970 Author Organization [facility] Care Team Providers Name Role Phone [facility] Un[facility] Unavailable Erosa Unavailable Erosa Unavailable Essence [...] is protected by Article 27-F of the [facility] Public Health law. If you continue you may haveaccess to information: Regarding HIV / AIDS; Provided by facilities licensed or operated by the [facility] Office of Mental Health; or Provided by the [facility] Office for People With Developmental Disabilities. If such information is present, then the following [facility] mandated warning applies: This information has [...] law may result in a fine or fdc sentence or both. A general authorization for the release of medical or other information is NOT sufficient authorization for further disclosure. Encounters Encounter Providers Location Date Indications Data Source(s ) Attender: Mihai 01/19/2020 [facility] ([facility] 12:00:00 AM EDT Medical, ) Office Attender: Mihai Alfaro 01/19/2020 12:00:00 AM EDT [facility] ([facility], ) Office Attender: Mihai Alfaro 01/03/2020 12:00:00 AM EDT [facility] [place] Office Attender: Mihai Alfaro 01/03/2020 12:00:00 AM EDT [facility] ([facility], ) Office Attender: Yecenia Salazar 12/20/2019 [...] [facility] ([facility]) Office Outpatient Attender: [id number] 12/15/2019 02:36:00 [facility] STEPHANIE, PM EDT [facility] RAdmitter: [id number] [facility] STEPHANIE Outpatient Attender: [id number] [facility] 06/14/2019 12:15:52 [facility] ([facility] ) Patient admitted. Immunizations Vaccine Date Status Description Data Source(s) New in 2011. IIV4 01/24/2019 12:00:00 completed ME FELICITYEN ([facility] AM EDT Physician) Medications Medication Brand Start Product Dose Route Administrative Pharmacy at Indications Reaction Description Data Name Date Form Instructions Instructions Source(s) Cholecalcif VITAMI 12/19/ TABLET 90 complet TONIO MIN D3 [facility] jacob 1000 N 2019 ed ([facility] UNT Oral D3:199 12:00: Martin Tablet 362 00 AM Physician) VITAMIN EDT [id number] Amitriptyli AMITRI 12/19/ TABLET 30 complet WANDER RIPTYLIN [facility] ne PTYLIN 2019 ed E ([facility] Hydrochlori E:8568 12:00: Raba di de 25 MG 34 00 AM Physician) Oral Tablet EDT AMITRIPTYLI NE:790773 Clonazepam CLONAZ 12/06/ TABLET 60 complet CLONA ZEPAM [facility] 1 MG Oral EPAM:1 2020 ed ([facility]mm[facility] Tablet 49826 12:00: Martin CLONAZEPAM: 00 AM Physici an) [id number] EDT Escitalopra LEXAPR 10/02/ TABLET 30 complet [...] 08/01/ TABLET 60 complet BUSPAR [facility] hydrochlori :34555 2019 ed (Ammir de 10 MG 3 12:00: Martin Oral Tablet 00 AM Physici an) BUSPAR:8660 EDT 83 Fenofibrate FENOFI 08/01/ TABLET 30 complet FENO FIBRATE [facility] 54 MG Oral BRATE: 2019 ed ([facility]mmir Tablet [id number] 12:00: Martin FENOFIBRATE 00 AM Physici an) :638218 EDT Methadone METHAD 01/24/ TABLET 90 complet METHAD ONE [facility] Hydrochlori ONE:86 2018 ed (Ammir de 5 MG 4718 12:00: Martin Oral Tablet 00 AM Physici an) METHADONE:8 EDT 23970 Insurance Providers Payer name Policy type Policy ID Covered Covered constitution party's Policy P elizabeth / Coverage constitution party ID relationship to [employer] Inf ormation type [place] MEDICAID [id number] SP [id number] MEDICARE [id number] SP [id number] 65 5 MEDICAID [id number] SP [id number] MEDICAID OF [id number] [place]IC[place] [id number] 1 [id number] PART B [place] MED[place] [id number] SP [id number] MEDICAID [id number] SP [id number] MEDICARE [id number] SP [id number] 65 5 Problems, Conditions, and Diagnoses Code Display Name Description Problem Type Effective Data Sour ce(s) Dates M53.3 Sacrococcygeal SACROCOCCYGEAL Problem 01/03/[address] [facility] disorders, not DISORDERS, NOT 12:00:00 AM [facility] elsewhere classified ELSEWHERE CLASSIFIED EDT Medical, PC) 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 0 [facility] ([address] osteoarthritis, left OSTEOARTHRITIS, LEFT 12:00 :00 AM [facility] KNEE EDT Medical, PC) M53.3 Sacrococcygeal SACROCOCCYGEAL Problem 01/03/2020 [facility] (St [...] [facility] ([facility] 12:00:00 AM Martin EDT Physician) M26.69 Other specified OTHER SPECIFIED Diagnosis 12/15/2019 [place] disorders of DISORDERS OF 02:36:00 PM [facility] temporomandibular TEMPOROMANDIBULAR EDT Care joint [employer] Surgeries/Procedures Procedure Description Date Indications Data Source(s) Documentation of current 01/19/2020 [facility] ([facility] medications (procedure) 12:00:00 AM EDT edical, ) OFFICE OUTPATIENT VISIT 01/19/2020 [facility] ([facility] 15 MINUTES 12:00:00 AM EDT Medical, ) Documentation of current 01/03/2020 [facility] ([facility] medications (procedure) 12:00:00 AM EDT edical, PC) OFFICE OUTPATIENT VISIT 01/03/2020 [facility] ([facility] 25 MINUTES 12:00:00 AM EDT Medical, ) Documentation of current 01/03/2020 [facility] ([facility] medications (procedure) 12:00:00 AM EDT edical, ) OFFICE OUTPATIENT VISIT 01/03/2020 [facility] ([facility] 25 MINUTES 12:00:00 AM EDT Medical, ) Results ID Date Data Source [id number] 01/29/2020 10:30:00 AM EDT [facility] Name Value Range Interpretation Description Data Sup porting Code Source(s) Document(s ) SARS [facility] coronavirus 2 RNA This lab was ordered by [facility] and reported by [facility]. ID Date Data Source [id number] 01/08/2020 10:38:00 AM EDT [facility] Name Value Range Interpretation Description Data Sup porting Code Source(s) Document(s ) SARS [facility] coronavirus 2 RNA This lab was ordered by [facility] and reported by [facility]. Procedure Social History Code Duration Value Status Description Data Source(s ) Smoking 01/19/2020 denies drinking completed denies drinking [facility] (St 12:00:00 AM EDT denies drugs denies drugs Smoke r [facility]) Smoking 01/19/2020 Unknown if ever completed Unknown if ever [facility] (St 12:00:00 AM EDT smoked smoked [facility]) Smoking 01/03/2020 denies drinking completed denies drinking [facility] (St 12:00:00 AM EDT denies drugs denies drugs Smoke r [facility]) Smoking 01/03/2020 Unknown if ever completed Unknown if ever [facility] (St 12:00:00 AM EDT smoked smoked [facility]) Smoking 12/20/2019 - Cigarettes: 1 completed - Cigarettes: 1 ppd [facility] ([facility] 12:00:00 AM EDT ppd [facility] Physician) Smoking 12/20/2019 Unknown if ever completed Unknown if ever [facility] ([facility] 12:00:00 AM EDT smoked smoked [facility]) Vital Signs ID Date Data Source UNK Name Value Range Interpretation Code Description Data Source(s) Diastolic blood 60 mm[Hg] 60 mm[Hg] [facility] (S t pressure [facility] , ) Systolic blood 100 mm[Hg] 100 mm[Hg] [facility] ([facility]) Body weight 192 lb 192 lb [facility] ([facility]) Body height 66 in 66 in [facility] ([facility]) Heart rate 107 /min 107 /min [facility] ([facility]) Respiratory rate 15 /min 15 /min [facility] ( [facility]) Inhaled oxygen 99 % 99 % [facility] ([facility]) Body mass index 31 kg/m2 31 kg/m2 [facility] (S t (BMI) [Ratio] [facility], ) Heart rate 85 /min 85 /min [facility] [...]
[2020-02-03] MEDS ORDERED: LIDOCAINE HCL 2% (20ML MULTI-DOSE VIAL) ONE (11:43)
[2020-02-03] MEDS ORDERED: LIDOCAINE HCL 1%, 10 MG/ML (20ML VIAL) ONE (11:43)
[2020-02-03] MEDS ORDERED: LIDOCAINE HCL/PF 1% SDV 5ML VIAL ONE (11:48)
[2020-02-03] MEDS ORDERED: LIDOCAINE HCL 2% JELLY 10 ML CARTRIDGE ONE (11:49)
[2020-02-03] MEDS ORDERED: LIDOCAINE HCL/PF 2% SDV 5ML VIAL ONE (11:52)
[2020-02-03] MEDS ORDERED: IOHEXOL 180 MG/1 ML ML IJ ONE (12:16)
[2020-02-03] MEDS ORDERED: LIDOCAINE HCL 2% (50ML VIAL) SQ ONE (12:18)
[2020-02-03] MEDS ORDERED: LIDOCAINE HCL 1%, 10 MG/ML (20ML VIAL) ID ONE (12:19)
[2020-02-03] MEDS ORDERED: BUPIVACAINE HCL/PF 0.5% (5MG/ML) 10 ML VIAL IJ ONE (12:20)
[2020-02-03] MEDS ORDERED: DEXAMETHASONE SOD PHOSPHATE 10 MG/1 ML VIAL IVPUSH ONE (12:21)
[2020-02-03 13:10] VITALS: BP 119/80; PULSE 104; TEMP 98
== END 2020-02-03 12:50 | disposition home or self-care (01) ==
LOC: JASU-SURG 04:44
PROVIDERS: ATTEND Pain Medicine Pain Medicine
PROC: 015R3ZZ Destruction of Sacral Nerve, Percutaneous Approach (ICD-10-PCS; principal; 2020-02-03 11:00)
DX: M53.3 Sacrococcygeal disorders, not elsewhere classified (principal); M54.5 Low back pain
CPT/HCPCS: 76000-TC-FY; J1100

== ENCOUNTER 2020-10-05 04:21 | Observation (INO) | payer OTHER ==
[2020-10-05 04:50] VITALS: BMI 31.4
[2020-10-05] MEDS ORDERED: LIDOCAINE 5% TOPICAL PATCH TP ONE (05:26)
[2020-10-05] MEDS ORDERED: ACETAMINOPHEN 325 MG TABLET (FP) PO ONE (05:26)
[2020-10-05] MEDS ORDERED: ACETAMINOPHEN 325 MG TABLET (FP) ONE (05:33)
[2020-10-05] MEDS ORDERED: LIDOCAINE 5% TOPICAL PATCH ONE (05:33)
[2020-10-05] MEDS ORDERED: MECLIZINE HCL 25 MG TABLET (FP) PO ONE (05:50)
[2020-10-05 06:02] LABS: EOS % 2.4 % (0-4.5); HEMATOCRIT 40.9 % (32.4-45.2); HEMOGLOBIN 14.1 GM/dL (10.7-15.3); LYMPH % 31.4 % (8-40); MCHC 34.5 g/dl (32.0-36.0); MEAN CELL VOLUME 84.1 fl (80-96); MEAN PLT VOLUME 7.8 fl (7.5-11.1); MONO % 7.2 % (3.8-10.2); PLATELET COUNT 291 K/MM3 (134-434); RBC 4.86 M/mm3 (3.60-5.2); RDW 13.6 % (11.6-15.6); WHITE BLOOD COUNT 11.8 K/mm3 (4.0-10.0)
[2020-10-05] MEDS ORDERED: MECLIZINE HCL 25 MG TABLET (FP) ONE (06:09)
[2020-10-05 06:22] LABS: CALCIUM 8.7 mg/dL (8.5-10.1)
[2020-10-05 06:23] LABS: ALBUMIN 3.6 g/dl (3.4-5.0); BLOOD UREA NITROGEN 10.1 mg/dL (7-18)
[2020-10-05 06:26] LABS: CREATININE 0.9 mg/dL (0.55-1.3)
[2020-10-05 06:27] LABS: BILIRUBIN,TOTAL 0.2 mg/dL (0.2-1); TOT PROT 6.9 g/dl (6.4-8.2)
[2020-10-05] MEDS ORDERED: KETOROLAC TROMETHAMINE 15 MG/ML VIAL IVPUSH ONE (08:47)
[2020-10-05] MEDS ORDERED: KETOROLAC TROMETHAMINE 15 MG/ML VIAL ONE (08:50)
[2020-10-05] MEDS ORDERED: ACETAMINOPHEN 325 MG TABLET (FP) PO PRN ×2 (09:20→09:56)
[2020-10-05] MEDS ORDERED: PATIENT'S OWN MEDICATION (NON-FORMULARY) (Clonazepam [Clonazepam] 1 MG Tablet) PO PRN (09:30)
[2020-10-05] MEDS ORDERED: CITALOPRAM HYDROBROMIDE 20 MG TABLET PO SCH (10:00)
[2020-10-05] MEDS ORDERED: ENOXAPARIN NA (PORCINE) 40 MG/0.4 ML DISP.SYRIN SQ SCH (10:00)
[2020-10-05] MEDS ORDERED: CITALOPRAM HYDROBROMIDE 10 MG TABLET ONE (11:07)
[2020-10-05] MEDS ORDERED: ENOXAPARIN NA (PORCINE) 40 MG/0.4 ML DISP.SYRIN SQ ONE (11:08)
[2020-10-05 11:56] VITALS: BP 106/62; PULSE 67; TEMP 97.6
[2020-10-05] MEDS ORDERED: TOPIRAMATE 25 MG TABLET PO SCH (14:00)
[2020-10-05] MEDS ORDERED: busPIRone HCL 10 MG TABLET (FP) PO SCH (14:00)
[2020-10-05] MEDS ORDERED: LIDOCAINE PATCH REMOVAL MC SCH (22:00)
[2020-10-05] MEDS ORDERED: MIRTAZAPINE 15 MG TABLET (FP) PO SCH (22:00)
== END 2020-10-05 13:09 | disposition left against medical advice (07) ==
LOC: JER 04:21 → UNDOADMOB 09:16 → JERBED 09:16 → INTOOBSV 09:16 → JERBED 09:20 → J6S 12:27
PROVIDERS: ADMIT Family Medicine; ATTEND Internal Medicine
PROC: 3E0333Z Introduction of Anti-inflammatory into Peripheral Vein, Percutaneous Approach (ICD-10-PCS; principal; 2020-10-05)
PROC: 3E013GC Introduction of Other Therapeutic Substance into Subcutaneous Tissue, Percutaneous Approach (ICD-10-PCS; 2020-10-05)
DX: R42 Dizziness and giddiness (principal); R51.9 Headache, unspecified; M54.5 Low back pain; G89.29 Other chronic pain; H55.00 Unspecified nystagmus; F41.9 Anxiety disorder, unspecified; F32.9 Major depressive disorder, single episode, unspecified; F11.20 Opioid dependence, uncomplicated; F17.210 Nicotine dependence, cigarettes, uncomplicated; K21.9 Gastro-esophageal reflux disease without esophagitis; Z98.1 Arthrodesis status; Z98.890 Other specified postprocedural states; Z88.2 Allergy status to sulfonamides; Z88.5 Allergy status to narcotic agent
CPT/HCPCS: 36415; 70450-TC; 70551-TC; 72131-TC; 80053; 85025; 93005; 93010; 96372; 96374; 99285-25; C9803; G0378; U0003; U0005

== ENCOUNTER 2021-04-28 13:20 | Emergency (ER) | payer OTHER ==
[2021-04-28 13:34] VITALS: BP 112/74; PULSE 112; TEMP 97; BMI 30.7
[2021-04-28 17:09] LABS: BASO % 0.7 % (0-2.0); EOS % 1.8 % (0-4.5); HEMATOCRIT 39.3 % (32.4-45.2); LYMPH % 24.9 % (8-40); MCH 27.8 pg (25.7-33.7); MCHC 32.9 g/dl (32.0-36.0); MEAN CELL VOLUME 84.3 fl (80-96); MEAN PLT VOLUME 7.5 fl (7.5-11.1); MONO % 6.2 % (3.8-10.2); NEUT % 66.4 % (42.8-82.8); PLATELET COUNT 383 10^3/uL (134-434); RBC 4.67 M/mm3 (3.60-5.2); RDW 13.8 % (11.6-15.6); WHITE BLOOD COUNT 10.7 K/mm3 (4.0-10.0)
[2021-04-28 17:11] LABS: EPI CELLS >36 /uL (0-25.1); HYALINE CASTS 1 /uL (0-3.1); URINE APPEARANCE CLOUDY; URINE BACTERIA 168 /uL (0-1359); URINE BILIRUBIN NEGATIVE (NEGATIVE); URINE COLOR ORANGE; URINE GLUCOSE (UA) NEGATIVE (NEGATIVE); URINE KETONE NEGATIVE (NEGATIVE); URINE LEUK ESTERASE TRACE (NEGATIVE); URINE NITRITE NEGATIVE (NEGATIVE); URINE PROTEIN 2+ (NEGATIVE); URINE UROBILINOGEN 0.2 mg/dL (0.2-1.0); URINE WBC 20 /uL (0-25.8)
[2021-04-28 17:29] LABS: CALCIUM 8.9 mg/dL (8.5-10.1)
[2021-04-28 17:30] LABS: ALBUMIN 3.5 g/dl (3.4-5.0); BLOOD UREA NITROGEN 16.1 mg/dL (7-18)
[2021-04-28 17:34] LABS: CREATININE 0.8 mg/dL (0.55-1.3)
[2021-04-28 17:35] LABS: BILIRUBIN,TOTAL 0.3 mg/dL (0.2-1); TOT PROT 7.1 g/dl (6.4-8.2)
[2021-04-28] MEDS ORDERED: KETOROLAC TROMETHAMINE 30 MG/1 ML VIAL IM ONE (17:53)
[2021-04-28] MEDS ORDERED: KETOROLAC TROMETHAMINE 30 MG/1 ML VIAL ONE (17:56)
[2021-04-28 20:49] LABS: URINE RBC 1828 /uL (0-23.9)
== END 2021-04-28 19:10 | disposition left against medical advice (07) ==
LOC: JER 13:20
PROC: 3E023GC Introduction of Other Therapeutic Substance into Muscle, Percutaneous Approach (ICD-10-PCS; principal; 2021-04-28)
DX: R10.9 Unspecified abdominal pain (principal); R31.9 Hematuria, unspecified
CPT/HCPCS: 36415; 74176-TC; 80053; 81003; 82550; 85025; 99285-25